=== PATIENT | female | born 1965 | race American Indian/Alaskan Native ===

== ENCOUNTER 2017-01-25 15:34 | Emergency (ER) | payer OTHER ==
[2017-01-25] MEDS ORDERED: Iohexol 240 (50 ml) PO STA (16:36)
[2017-01-25] MEDS ORDERED: Sodium Chloride 0.9% 1,000 ML IV STA (16:36)
[2017-01-25] MEDS ORDERED: Labetalol 25mg/5ml Syringe IV STA (16:39)
[2017-01-25 17:24] LABS: BASO # 0.1 K/uL (0.0-0.2); BASO % 0.5 % (0.0-2.0); EOS % 0.2 % (0.0-4.0); HEMATOCRIT 36.7 % (34.0-47.0); LYMPH # 1.1 K/uL (1.0-4.3); LYMPH % 9.4 % (20.0-40.0); MEAN CELL VOLUME 88.1 fL (81.0-99.0); MEAN PLATELET VOLUME 9.2 fL (7.2-11.7); MONO # 0.7 K/uL (0.0-0.8); MONO % 5.6 % (0.0-10.0); NRBC % 0.1 % (0.0-2.0); PLATELET COUNT 224 K/uL (130-400); RED CELL DISTRIBUTION WIDTH 14.4 % (11.5-14.5)
[2017-01-25 17:26] LABS: WHITE BLOOD COUNT 12.1 K/uL (4.8-10.8)
[2017-01-25] MEDS ORDERED: Labetalol 25mg/5ml Syringe ONE (17:27)
[2017-01-25] MEDS ORDERED: Sodium Chloride 0.9% 1,000 ML ONE (17:28)
[2017-01-25 17:32] LABS: INR 1.2
[2017-01-25 17:33] LABS: POTASSIUM 3.7 mmol/L (3.6-5.2)
[2017-01-25 17:35] LABS: ALB/GLOB RATIO 1.3 (1.0-2.1); BILIRUBIN,TOTAL 0.5 mg/dL (0.2-1.3); TOTAL PROTEIN 7.5 g/dL (6.3-8.3)
[2017-01-25 17:35] LABS: RBC URINE 21 /hpf (0-3); URINE BACTERIA MANY (<OCC); URINE BILIRUBIN NEGATIVE (NEGATIVE); URINE BLOOD 2+ (NEGATIVE); URINE COLOR Yellow (YELLOW); URINE GLUCOSE (UA) 1+ mg/dL (Normal); URINE KETONE NEGATIVE (NEGATIVE); URINE LEUKOCYTE ESTERASE 3+ Leu/uL (Negative); URINE PROTEIN 2+ mg/dL (NEGATIVE); URINE UROBILINOGEN NORMAL mg/dL (0.2-1.0); WBC URINE 346 /hpf (0-5)
[2017-01-25 17:36] LABS: CALCIUM 8.3 mg/dl (8.6-10.4)
[2017-01-25 17:45] LABS: NEUTROPHIL 85 % (50-75); TOTAL CELLS COUNTED 100
--- NOTE | 2017-01-25 17:48 | C.PDOC ---
History Of Present Illness <Renata Brewster - Last Filed: 01/25/17 19:06> <Hector Ortiz - Last Filed: 01/25/17 20:12> 51-year-old female, presents to the emergency department with complaints of abdominal pain. Patient states she has been experiencing right-lower quadrant abdominal pain that started yesterday. Pain is intermittent in nature and non- radiating. Associated with urinary frequency. Patient denies nausea/vomiting, diarrhea, fevers, chills, shortness of breath or any other associated symptoms. No other complaints at this time. (Renata Brewster) History Per: Patient History/Exam Limitations: no limitations <Renata Brewster - Last Filed: 01/25/17 19:06> <Hector Ortiz - Last Filed: 01/25/17 20:12> Time Seen by Provider: 01/25/17 16:28 Chief Complaint (Nursing): Abdominal Pain Past Medical History Reviewed: Historical Data, Nursing Documentation, Vital Signs - Medical History PMH: Bipolar Disorder, Depression, Diabetes, HTN (uncompliant with meds), Paranoia, Schizophrenia Denies: Chronic Kidney Disease Surgical History: Family History: States: Unknown Family Hx, Diabetes, Hypertension - Social History Hx Tobacco Use: Yes Hx Alcohol Use: Yes Hx Substance Use: No - Immunization History Hx Tetanus Toxoid Vaccination: No Hx Influenza Vaccination: No Hx Pneumococcal Vaccination: No <Renata Brewster - Last Filed: 01/25/17 19:06> Vital Signs: Last Vital Signs Temp 100.8 F H 01/25/17 18:00 Pulse 101 H 01/25/17 18:54 Resp 22 01/25/17 18:54 BP 147/83 01/25/17 19:52 Pulse Ox 100 01/25/17 19:09 Review Of Systems Except As Marked, All Systems Reviewed And Found Negative. Constitutional: Negative for: Fever, Chills Cardiovascular: Negative for: Chest Pain, Palpitations Gastrointestinal: Positive for: Abdominal Pain. Negative for: Nausea, Vomiting Genitourinary: Positive for: Frequency Musculoskeletal: Negative for: Back Pain Skin: Negative for: Rash Neurological: Negative for: Weakness, Numbness, Headache, Dizziness <Renata Brewster - Last Filed: 01/25/17 19:06> Physical Exam - Physical Exam Appears: Non-toxic, No Acute Distress Skin: Normal Color, Warm, Dry Head: Atraumatic, Normacephalic Eye(s): bilateral: Normal Inspection Nose: Normal Oral Mucosa: Moist Lips: Normal Appearing Neck: Normal ROM Cardiovascular: Rhythm Regular Respiratory: Normal Breath Sounds Gastrointestinal/Abdominal: Soft, Tenderness (RLQ), Guarding, No Rebound Back: No CVA Tenderness Extremity: Normal ROM Neurological/Psych: Oriented x3, Normal Speech <Renata Brewster - Last Filed: 01/25/17 19:06> ED Course And Treatment - Laboratory Results Result Diagrams: 01/25/17 17:19 01/25/17 17:19 O2 Sat by Pulse Oximetry: 100 Progress Note: Blood work, EKG and CT Ab/Pel ordered and reviewed. Patient treated with Protonix, IVF, Trandate and Zofran <Renata Brewster - Last Filed: 01/25/17 19:06> - Laboratory Results Result Diagrams: 01/25/17 17:19 01/25/17 17:19 O2 Sat by Pulse Oximetry: 100 Pulse Ox Interpretation: Normal Reevaluation Time: 20:12 Reassessment Condition: Improved <Hector Ortiz - Last Filed: 01/25/17 20:12> Disposition - Disposition Disposition Time: 19:08 <Renata Brewster - Last Filed: 01/25/17 19:06> <Hector Ortiz - Last Filed: 01/25/17 20:12> - Disposition Condition: FAIR - Clinical Impression Clinical Impression: Abdominal pain, Hypertension, uncontrolled, Fever - Scribe Statement The provider has reviewed the documentation as recorded by the Scribe <Renata Brewster - Last Filed: 01/25/17 19:06> <Hector Ortiz - Last Filed: 01/25/17 20:12> - Scribe Statement Gallo Patricio All medical record entries made by the Scribe were at my direction and personally dictated by me. I have reviewed the chart and agree that the record accurately reflects my personal performance of the history, physical exam, medical decision making, and the department course for this patient. I have also personally directed, reviewed, and agree with the discharge instructions and disposition. (Renata Brewster) Physician Patient Turnover Patient Signed Over To: Hector Ortiz Handoff Comments: pending CT, BP still elevated, ? pyelo, needs to be admitted <Renata Brewster - Last Filed: 01/25/17 19:06>
[2017-01-25] MEDS ORDERED: Iohexol 240 (50 ml) ONE (18:03)
[2017-01-25] MEDS ORDERED: Enalaprilat 2.5 MG/2 ML IV STA (18:27)
[2017-01-25] MEDS ORDERED: Enalaprilat 2.5 MG/2 ML ONE (18:39)
[2017-01-25] MEDS ORDERED: cefTRIAXone IV 1 gm in Dextros 50 ML IVPB ONE (19:42)
[2017-01-25 19:52] VITALS: BP 147/83
[2017-01-25 20:38] VITALS: PULSE 95; RESP 18; TEMP 100.1; O2SAT 98
--- NOTE | 2017-01-26 09:26 | CT ---
PROCEDURE: CT Abdomen and Pelvis without intravenous contrast HISTORY: Right lower quadrant abdominal pain COMPARISON: None. TECHNIQUE: Axial computed tomographic images were performed through the abdomen and pelvis with intravenous contrast. Subsequently, sagittal and coronal reformatted images were obtained. 50 cc of Visipaque 240 intravenous contrast was administered. Radiation dose: Total exam DLP = 587 mGy-cm. This CT exam was performed using one or more of the following dose reduction techniques: Automated exposure control, adjustment of the mA and/or kV according to patient size, and/or use of iterative reconstruction technique. FINDINGS: LOWER THORAX: 2 millimeter pulmonary nodule in the lateral aspect of the left lower lobe. LIVER: Unremarkable. No gross lesion or ductal dilatation. GALLBLADDER AND BILE DUCTS: Question minimal sludge in the gallbladder. PANCREAS: Unremarkable. No gross lesion or ductal dilatation. SPLEEN: Unremarkable. ADRENALS: Unremarkable. No mass. KIDNEYS AND URETERS: Slight heterogeneity of the right kidney, possibly edematous with moderate stranding and minimal adjacent fluid. Mild right pelvocaliectasis without definite obstructing stone. Stranding associated with the perinephric fat adjacent to the hepatic flexure likely renal in etiology. Suboptimal contrast opacification, limits evaluation for pyelonephritis. VASCULATURE: Unremarkable. No aortic aneurysm. BOWEL: Mild thickening at the level of the hepatic flexure with some adjacent fat stranding may be renal in etiology. APPENDIX: Unremarkable. Normal appendix. PERITONEUM: Unremarkable. No free fluid. No free air. LYMPH NODES: Unremarkable. No enlarged lymph nodes. BLADDER: Unremarkable. REPRODUCTIVE: Multiple benign fibroid lesions in the uterus. BONES: No acute fracture. OTHER FINDINGS: Atherosclerotic calcification in the aorta. Suboptimal contrast opacification. IMPRESSION: Suboptimal contrast opacification. Further evaluation with a dedicated repeat contrast-enhanced CT of the abdomen pelvis may be helpful if clinically indicated. Mild heterogeneity and stranding with adjacent fluid associated with the right kidney. This may represent a recently passed calculi ; however, acute pyelonephritis cannot entirely be excluded. Consider clinical correlation and or laboratory correlation if clinically indicated. Correlation with contrast-enhanced CT of the abdomen and pelvis may be helpful. Thickening at the level of the hepatic flexure of the colon may be reactive. Clinical correlation. Fibroid uterus. Additional findings as above. These findings were preliminarily reported at 8 p.m. on 01/25/[address] Jorge Luis Whiting from [facility].
== END 2017-01-25 20:38 | disposition home or self-care (01) ==
LOC: C.ER 15:34
DX: N39.0 Urinary tract infection, site not specified (principal); B96.20 Unspecified Escherichia coli [E. coli] as the cause of diseases classified elsewhere; R50.81 Fever presenting with conditions classified elsewhere
CPT/HCPCS: 74176; 80053; 81001; 83690; 84703; 85025; 85610; 85730; 87086; 87181; 96361; 96365; 96375; 99285; C9113; J0696; J2405; J7040; Q9966

== ENCOUNTER 2017-05-05 12:28 | Emergency (ER) | payer OTHER ==
[2017-05-05 14:06] LABS: BASO # 0.1 K/uL (0.0-0.2); BASO % 1.4 % (0.0-2.0); EOS # 0.2 K/uL (0.0-0.7); EOS % 2.1 % (0.0-4.0); HEMOGLOBIN 11.4 g/dL (11.0-16.0); LYMPH # 2.5 K/uL (1.0-4.3); LYMPH % 32.6 % (20.0-40.0); MEAN CELL VOLUME 89.8 fL (81.0-99.0); MEAN CORPUSCULAR HEMOGLOBIN 29.4 pg (27.0-31.0); MEAN CORPUSCULAR HGB CONC 32.7 g/dL (33.0-37.0); MEAN PLATELET VOLUME 10.2 fL (7.2-11.7); MONO # 0.5 K/uL (0.0-0.8); MONO % 6.9 % (0.0-10.0); NEUT # 4.3 K/uL (1.8-7.0); NRBC % 0.1 % (0.0-2.0); RBC 3.89 Mil/uL (3.80-5.20); RED CELL DISTRIBUTION WIDTH 14.9 % (11.5-14.5); WHITE BLOOD COUNT 7.5 K/uL (4.8-10.8)
[2017-05-05 14:09] LABS: HCG,QUALITATIVE URINE NEGATIVE (NEGATIVE)
[2017-05-05 14:14] LABS: ALBUMIN 3.7 g/dL (3.5-5.0)
[2017-05-05 14:15] LABS: SQUAMOUS EPITHIAL 17 /hpf (0-5); URINE BACTERIA RARE (<OCC); URINE BILIRUBIN NEGATIVE (NEGATIVE); URINE BLOOD NEGATIVE (NEGATIVE); URINE CLARITY Hazy (Clear); URINE COLOR Yellow (YELLOW); URINE GLUCOSE (UA) NORMAL (Normal); URINE LEUKOCYTE ESTERASE 3+ Leu/uL (Negative); URINE NITRATE NEGATIVE (NEGATIVE); URINE PROTEIN NEGATIVE (NEGATIVE); URINE UROBILINOGEN NORMAL mg/dL (0.2-1.0)
[2017-05-05 14:17] LABS: ALB/GLOB RATIO 1.1 (1.0-2.1)
[2017-05-05 14:18] LABS: CALCIUM 8.1 mg/dl (8.6-10.4)
[2017-05-05] MEDS ORDERED: Sodium Chloride 0.9% 500 ML IV ONE (14:28)
--- NOTE | 2017-05-05 16:59 | CT ---
PROCEDURE: CT abdomen pelvis dated 05/05/2017 HISTORY: Right low back pain, UTI, h/o pyelo, renal insuff. COMPARISON: Comparison made with CT scan abdomen pelvis dated 01/25/2017 TECHNIQUE: Contiguous axial images of the abdomen and pelvis performed without oral or intravenous contrast material. N. Coronal and Sagittal reformats generated. Radiation dose: Total exam DLP = 574.31 mGy-cm. This CT exam was performed using one or more of the following dose reduction techniques: Automated exposure control, adjustment of the mA and/or kV according to patient size, and/or use of iterative reconstruction technique. . FINDINGS: LOWER THORAX: Mild bibasilar atelectasis with suspected concomitant scarring changes left greater than right. No effusion. No evidence of basilar pneumothorax. Heart size is upper limits of normal. . No significant pericardial effusion. LIVER: Liver is borderline/ mildly enlarged measuring approximately 18.4 cm. No obvious hepatic mass or collection. GALLBLADDER AND BILE DUCTS: Gallbladder is incompletely distended which may be due to nonfasting state. No evidence of intraluminal gallbladder calculi. PANCREAS: Visualized portions the pancreas appear grossly unremarkable. SPLEEN: Spleen exhibits normal size and attenuation pattern without mass collection or calcification. ADRENALS: Unremarkable. KIDNEYS AND URETERS: Kidneys at are relatively symmetric in appearance. No evidence of nephrolithiasis. . . There is prominent bilateral extrarenal pelves however the ureters are not significantly dilated. Multiple tiny calcifications are present within pelvis bilaterally surrounding the uterus a, a few of which also are located along the posterolateral margins of the urinary bladder. Possibility of one of the small calcifications within the distal right and left UVJ cannot be completely excluded. Clinical correlation with urinalysis. BLADDER: Urinary bladder is physiologically distended. No evidence of intraluminal urinary bladder calculi. Minimal urinary bladder wall prominence; rule out sequela of cystitis. REPRODUCTIVE: Re- demonstrated is fibroid uterus. Pelvic ultrasound followup could be performed further evaluation if indicated. APPENDIX: Normal-appearing appendix best seen on axial image number [id number]. No periappendiceal inflammatory changes. BOWEL: Evaluation of the bowel is limited due to the lack of oral contrast material. Stomach is incompletely distended which may account for thick-walled appearance. Visualized loops of small bowel exhibit normal contour and caliber. No evidence of acute mechanical small bowel obstruction. Stool and air seen throughout the colon. No evidence of definitive abnormal mural wall thickening of the colon. PERITONEUM: No evidence of free intraperitoneal air. No obvious free or loculated fluid collections. . There does appear to be some faint infiltration changes within the mesentery nonspecific. Rule out imer mesentery. LYMPH NODES: Unremarkable. No enlarged lymph nodes. VASCULATURE: The aorta is somewhat tortuous with calcifications on along the mid abdominal aorta including at the origins of both renal arteries. Rule out renal artery stenosis. BONES: Osseous structures appear intact. Numb very minor degenerative spondylosis of the lower thoracic and lumbar spine. There are no acute compression fractures no retropulsed fragments. OTHER FINDINGS: None. IMPRESSION: No evidence of obstructing nephrolithiasis or hydronephrosis. Multiple tiny calcifications within the pelvis adjacent to the uterus on as well as adjacent to the posterolateral margins of the urinary bladder noted. Possibility of 1 of the small calcifications are within the right and left UVJ cannot be completely excluded. Clinical correlation and a urinalysis evaluation recommended. . The urinary bladder is distended though also exhibits minimal wall thickening. Rule out cystitis. Uterine fibroids. Borderline/mild hepatomegaly. Rule out missed mesentery as above.
[2017-05-05] MEDS ORDERED: cefTRIAXone IV 1 gm in Dextros 50 ML IVPB ONE ×2 (17:05→17:12)
--- NOTE | 2017-05-05 17:09 | C.PDOC ---
History Of Present Illness Pt c/o right lower back pain. Time Seen by Provider: 05/05/17 13:07 Chief Complaint (Nursing): Back Pain History Per: Patient Onset/Duration Of Symptoms: Days (about 2) Current Symptoms Are (Timing): Still Present Quality Of Discomfort: "Pain" Severity: Moderate Exacerbating Factor(s): Movement Additional History Per: Prior Records Past Medical History Reviewed: Historical Data, Nursing Documentation, Vital Signs Vital Signs: Last Vital Signs Temp 98 F 05/05/17 12:29 Pulse 67 05/05/17 16:02 Resp 16 05/05/17 16:02 BP 165/89 H 05/05/17 16:02 Pulse Ox 99 05/05/17 17:12 - Medical History PMH: Bipolar Disorder, Depression, Diabetes, HTN (uncompliant with meds), Paranoia, Chronic Kidney Disease, Schizophrenia Surgical History: Family History: States: Unknown Family Hx, Diabetes, Hypertension - Social History Hx Tobacco Use: Yes Hx Alcohol Use: Yes Hx Substance Use: No - Immunization History Hx Tetanus Toxoid Vaccination: No Hx Influenza Vaccination: No Hx Pneumococcal Vaccination: No Review Of Systems Except As Marked, All Systems Reviewed And Found Negative. Constitutional: Negative for: Fever, Weakness Cardiovascular: Negative for: Chest Pain, Palpitations Respiratory: Negative for: Shortness of Breath Gastrointestinal: Negative for: Vomiting, Diarrhea Genitourinary: Positive for: Dysuria (?) Musculoskeletal: Positive for: Back Pain. Negative for: Neck Pain Skin: Negative for: Rash Neurological: Negative for: Weakness, Numbness, Seizures, Altered Mental Status Physical Exam - Physical Exam Appears: Non-toxic, No Acute Distress Skin: Normal Color, Warm, Dry, No Rash Head: Atraumatic, Normacephalic Eye(s): bilateral: Normal Inspection, PERRL, EOMI Neck: Normal ROM, Supple Cardiovascular: Rhythm Regular Respiratory: Normal Breath Sounds, No Accessory Muscle Use Gastrointestinal/Abdominal: Soft, Tenderness (mild nonspecific), No Guarding, No Rebound Back: No CVA Tenderness, No Vertebral Tenderness Extremity: Normal ROM Neurological/Psych: Oriented x3, Normal Motor, Normal Sensation ED Course And Treatment - Laboratory Results Result Diagrams: 05/05/17 14:01 05/05/17 14:01 Lab Interpretation: Abnormal Interpretation Of Abnormal: UTI. Renal insufficiency. Urine POC: Negative ECG: Interpreted By Me, Viewed By Me ECG Rhythm: Sinus Rhythm, Nonspecific Changes ECG Interpretation: Abnormal Interpretation Of ECG: LVH with strain pattern. Rate From EC O2 Sat by Pulse Oximetry: 99 Pulse Ox Interpretation: Normal - CT Scan/US CT abd/pelv Other Rad Studies (CT/US): Read By Radiologist, Radiology Report Reviewed CT/US Interpretation: IMPRESSION: No evidence of obstructing nephrolithiasis or hydronephrosis. Multiple tiny calcifications within the pelvis adjacent to the uterus on as well as adjacent to the posterolateral margins of the urinary bladder noted. Possibility of 1 of the small calcifications are within the right and left UVJ cannot be completely excluded. Clinical correlation and a urinalysis evaluation recommended. . The urinary bladder is distended though also exhibits minimal wall thickening. Rule out cystitis. Uterine fibroids. Borderline/mild hepatomegaly. Rule out missed mesentery as above. Reassessment Condition: Improved Progress - Interventions Interventions:: Observation, Intravenous fluid - Medications Administered Oral: Antihypertensive Intravenous: Other (Abx) - Data Reviewed Data Reviewed: Lab, Diagnostic imaging, EKG, Old records - Patient Status Patient status: Mostly improved - Critical Care Citical Care: Excluding Proc Time Critical Care Time: 45 minutes - Continuity of Care Discussed patient case with:: Patient, ED Nurse - Patient Plan Patient Plan: Discharge, F/U with PCP Disposition Counseled Patient/Family Regarding: Studies Performed, Diagnosis, Need For Followup, Rx Given, Smoking Cessation - Disposition Referrals: Ky Ashley MD [Medical Doctor] - Disposition: HOME/ ROUTINE Disposition Time: 17:40 Condition: IMPROVED Additional Instructions: Follow up with your doctor this week for further evaluation and treatment. Return to the ER if you develop fever, vomiting, abdominal pain, trouble urinating, weakness, numbness, worsening of symptoms or if you have any other concerns. Prescriptions: amLODIPine [Norvasc] 5 mg PO DAILY #30 tab Ciprofloxacin [Cipro] 1 tab PO BID #14 tab cloNIDine [Catapres] 0.2 mg PO BID #60 tab Instructions: Urinary Tract Infection in Women (ED), Hypertension (ED) - Clinical Impression Clinical Impression: Uncontrolled hypertension, UTI (urinary tract infection)
[2017-05-05 18:08] VITALS: BP 165/98; PULSE 75; RESP 18; TEMP 98.5; O2SAT 98
--- NOTE | 2017-05-06 11:08 | CARD ---
APPROVED REPORT EKG Measurement Heart [id number] <Conclusion> Sinus rhythm with premature supraventricular complexes Left ventricular hypertrophy with repolarization abnormality Possible Inferior infarct, age undetermined Abnormal ECG
== END 2017-05-05 18:00 | disposition home or self-care (01) ==
LOC: C.ER 12:28
DX: N39.0 Urinary tract infection, site not specified (principal); I12.9 Hypertensive chronic kidney disease with stage 1 through stage 4 chronic kidney disease, or unspecified chronic kidney disease
CPT/HCPCS: 74176; 80053; 81001; 82948; 83690; 84703; 85025; 87086; 93005; 96365; 99285; J0696; J7040

== ENCOUNTER 2017-10-06 12:15 | Emergency (ER) | payer OTHER ==
--- NOTE | 2017-10-06 13:14 | C.PDOC ---
History Of Present Illness 52 year old female with Hx of HTN presents to the ED c/o congestion and generalized body aches for the past 2 days. Patient also reports pain to her left big toe. Patient reports her HTN medication ended today, she denies fever, nausea, vomit, abdominal pain, weakness, numbness, headache. Time Seen by Provider: 10/06/17 12:55 Chief Complaint (Nursing): Cough, Cold, Congestion History Per: Patient History/Exam Limitations: no limitations Onset/Duration Of Symptoms: Days Current Symptoms Are (Timing): Still Present Associated Symptoms: Sore Throat, Cough, Myalgias. denies: Sputum Ear Symptoms: Bilateral: None Severity: None Recent travel outside of the [place]: No Additional History Per: Patient Past Medical History Reviewed: Historical Data, Nursing Documentation, Vital Signs Vital Signs: Last Vital Signs Temp 97.8 F 10/06/17 12:29 Pulse 84 10/06/17 12:27 Resp 19 10/06/17 12:27 BP 241/145 H 10/06/17 12:27 Pulse Ox 98 10/06/17 13:33 - Medical History PMH: Bipolar Disorder, Depression, Diabetes, HTN (uncompliant with meds), Paranoia, Chronic Kidney Disease, Schizophrenia Surgical History: Family History: States: Unknown Family Hx, Diabetes, Hypertension - Social History Hx Tobacco Use: Yes Hx Alcohol Use: Yes Hx Substance Use: No - Immunization History Hx Tetanus Toxoid Vaccination: No Hx Influenza Vaccination: No Hx Pneumococcal Vaccination: No Review Of Systems Constitutional: Negative for: Fever, Chills Eyes: Negative for: Vision Change ENT: Positive for: Throat Pain. Negative for: Ear Pain Cardiovascular: Negative for: Chest Pain, Palpitations Respiratory: Positive for: Cough. Negative for: Shortness of Breath Gastrointestinal: Negative for: Nausea, Vomiting, Abdominal Pain Genitourinary: Negative for: Dysuria Musculoskeletal: Negative for: Neck Pain, Back Pain Skin: Negative for: Rash Neurological: Negative for: Weakness, Numbness Physical Exam - Physical Exam Appears: Non-toxic, No Acute Distress Skin: Normal Color, Warm, Dry Head: Atraumatic, Normacephalic Nose: No Discharge Oral Mucosa: Moist Throat: Erythema, Other (swelling posterior pharynx ) Neck: Normal ROM, Supple Chest: Symmetrical Cardiovascular: Rhythm Regular, No Murmur Respiratory: Normal Breath Sounds, No Rales, No Rhonchi, No Wheezing Gastrointestinal/Abdominal: Soft, No Tenderness, No Distention, No Rebound Extremity: Normal ROM, Tenderness (Left big toe), No Pedal Edema, No Calf Tenderness, No Swelling Neurological/Psych: Oriented x3, Normal Speech, Normal Cognition Gait: Steady ED Course And Treatment O2 Sat by Pulse Oximetry: 98 (On RA) Pulse Ox Interpretation: Normal Medical Decision Making Medical Decision Making: Impression : congestion Plan: * Catapres 0.3 mg PO Disposition - Disposition Disposition: HOME/ ROUTINE Disposition Time: 13:45 Condition: STABLE Prescriptions: cloNIDine [Catapres] 0.3 mg PO BID #30 tab Ibuprofen [Motrin Tab] 600 mg PO TID PRN #15 tab PRN Reason: Pain, Moderate (4-7) Promethazine DM [Phenergan DM Syrup] 10 ml PO TID PRN #120 ml PRN Reason: Cough Instructions: Upper Respiratory Infection (ED) Forms: [facility] (Cameroonian) - Clinical Impression Clinical Impression: Hypertension, URI (upper respiratory infection), Paronychia - Scribe Statement The provider has reviewed the documentation as recorded by the Scribe Pepe Rebollar All medical record entries made by the Scribe were at my direction and personally dictated by me. I have reviewed the chart and agree that the record accurately reflects my personal performance of the history, physical exam, medical decision making, and the department course for this patient. I have also personally directed, reviewed, and agree with the discharge instructions and disposition.
[2017-10-06 14:12] VITALS: RESP 18; O2SAT 99
[2017-10-06 15:04] VITALS: BP 175/98; PULSE 64; TEMP 98.2
== END 2017-10-06 16:00 | disposition home or self-care (01) ==
LOC: C.ER 12:15
DX: J06.9 Acute upper respiratory infection, unspecified (principal); L03.032 Cellulitis of left toe; I12.9 Hypertensive chronic kidney disease with stage 1 through stage 4 chronic kidney disease, or unspecified chronic kidney disease; N18.9 Chronic kidney disease, unspecified; Z87.891 Personal history of nicotine dependence

== ENCOUNTER 2017-10-09 12:59 | Emergency (ER) | payer OTHER ==
[2017-10-09 13:17] VITALS: PULSE 72; RESP 18; TEMP 97.6; O2SAT 99
--- NOTE | 2017-10-09 13:43 | C.PDOC ---
History Of Present Illness 52 year old female with PMH of HTN presents to ED with complaints of cough for the past 4 days. She states she finished the cough medicine given to her by doctor the other day. She still has cough and congestion, non-productive. She states she needs refill of her HTN medicine Norvasc. She states she took the catapres once a day and has not taken it yet today. Patient states she has been working a lot and is stressed out. Time Seen by Provider: 10/09/17 13:30 Chief Complaint (Nursing): Cough, Cold, Congestion History Per: Patient History/Exam Limitations: no limitations Onset/Duration Of Symptoms: Days Current Symptoms Are (Timing): Still Present Sick Contacts (Context): Individual(s) At Work Associated Symptoms: Cough, Myalgias, Nasal Congestion Past Medical History Reviewed: Historical Data, Nursing Documentation, Vital Signs Vital Signs: Last Vital Signs Temp 97.6 F 10/09/17 13:13 Pulse 72 10/09/17 13:13 Resp 18 10/09/17 13:13 BP 178/107 H 10/09/17 14:20 Pulse Ox 99 10/09/17 14:23 - Medical History PMH: Bipolar Disorder, Depression, Diabetes, HTN (uncompliant with meds), Paranoia, Chronic Kidney Disease, Schizophrenia Surgical History: Family History: States: Unknown Family Hx, Diabetes, Hypertension - Social History Hx Tobacco Use: Yes Hx Alcohol Use: Yes Hx Substance Use: No - Immunization History Hx Tetanus Toxoid Vaccination: No Hx Influenza Vaccination: No Hx Pneumococcal Vaccination: No Review Of Systems Constitutional: Positive for: Malaise. Negative for: Fever, Weakness Eyes: Negative for: Vision Change ENT: Positive for: Nose Congestion Respiratory: Positive for: Cough. Negative for: Sputum, Wheezing Gastrointestinal: Negative for: Vomiting, Abdominal Pain, Diarrhea Genitourinary: Negative for: Dysuria Skin: Negative for: Rash Neurological: Negative for: Headache Physical Exam - Physical Exam Appears: Non-toxic, No Acute Distress Skin: Warm, Dry, No Rash Head: Atraumatic, Normacephalic Eye(s): bilateral: Normal Inspection, EOMI Nose: Normal, No Flaring Oral Mucosa: Moist Neck: Normal ROM Chest: Symmetrical Cardiovascular: Rhythm Regular, No Murmur Respiratory: Normal Breath Sounds (clear to auscultation), No Accessory Muscle Use, No Rhonchi, No Wheezing Extremity: Bilateral: Atraumatic, Normal Color And Temperature, Normal ROM Neurological/Psych: Oriented x3, Normal Speech Gait: Steady ED Course And Treatment O2 Sat by Pulse Oximetry: 99 Medical Decision Making Medical Decision Making: Patient with history of uncontrolled BP comes in for medicine refill and asking for more cough medicine, she has a cold. Patient was just seen in ED 3 days ago for similar symptoms. Patient smells of cigarette smoke and has dry cough. O2 saturation is adequate. Will give Norvasc and give Rx. Patient instructed to follow up with PCP or clinic. Disposition Counseled Patient/Family Regarding: Diagnosis, Need For Followup, Rx Given - Disposition Referrals: [facility] [Outside] [facility] [Outside] [email or web address] [Outside] Disposition: HOME/ ROUTINE Disposition Time: 14:00 Condition: STABLE Additional Instructions: Follow up with the clinic in 2-5 days for further evaluation. Take medications as prescribed. Return to the emergency department at any time if symptoms persist or worsen. You may call [employer] service for any assistance . Prescriptions: amLODIPine [Norvasc] 2.5 mg PO DAILY #30 tab Prednisone 50 mg PO DAILY #4 tablet Promethazine DM [Phenergan DM Syrup] 10 ml PO Q8 PRN #300 ml PRN Reason: Cough Instructions: Upper Respiratory Infection (ED) Forms: [facility] (Belarusian) - POA Present On Arrival: None - Clinical Impression Clinical Impression: Upper respiratory infection, Hypertension
[2017-10-09 14:21] VITALS: BP 178/107
== END 2017-10-09 14:43 | disposition home or self-care (01) ==
LOC: C.ER 12:59
DX: J06.9 Acute upper respiratory infection, unspecified (principal); I10 Essential (primary) hypertension; Z72.0 Tobacco use

== ENCOUNTER 2017-12-21 02:13 | Emergency (ER) | payer OTHER ==
[2017-12-21] MEDS ORDERED: Naproxen 550 mg Tab PO STA (03:01)
[2017-12-21] MEDS ORDERED: Naproxen 550 mg Tab PO ONE (03:28)
--- NOTE | 2017-12-21 03:56 | C.PDOC ---
History Of Present Illness 52 year old female presents to the ER with a complaint of pain to the left buttock that radiates to the left thigh for the past 3 days. Patient states she has been applying bengay to the area with no relief; she has not taken any medication at home for the pain. Patient has a Hx of chronic HTN on clonidine, she reports she did not take her dose yesterday. Denies trauma, weakness, numbness, dysuria, hematuria, or incontinence. Time Seen by Provider: 12/21/17 02:46 Chief Complaint (Nursing): Hip Pain History Per: Patient History/Exam Limitations: no limitations Onset/Duration Of Symptoms: Days Current Symptoms Are (Timing): Still Present Recent travel outside of the [place]: No Past Medical History Reviewed: Historical Data, Nursing Documentation, Vital Signs Vital Signs: Last Vital Signs Temp 98.4 F 12/21/17 05:32 Pulse 66 12/21/17 05:32 Resp 16 12/21/17 05:32 BP 170/93 H 12/21/17 05:32 Pulse Ox 99 12/21/17 05:32 - Medical History PMH: Bipolar Disorder, Depression, Diabetes, HTN (uncompliant with meds), Paranoia, Chronic Kidney Disease, Schizophrenia Surgical History: Family History: States: Diabetes, Hypertension - Social History Hx Tobacco Use: Yes Hx Alcohol Use: Yes Hx Substance Use: No - Immunization History Hx Tetanus Toxoid Vaccination: No Hx Influenza Vaccination: No Hx Pneumococcal Vaccination: No Review Of Systems Genitourinary: Negative for: Dysuria, Incontinence, Hematuria Musculoskeletal: Positive for: Leg Pain Neurological: Negative for: Weakness, Numbness Physical Exam - Physical Exam Appears: Non-toxic, No Acute Distress Skin: Normal Color, Warm, Dry Head: Atraumatic, Normacephalic Eye(s): bilateral: Normal Inspection Back: No Vertebral Tenderness, No Paraspinal Tenderness, Straight Leg Raising ( Positive at 40 degrees) Extremity: Tenderness (Left gluteal area), Other (ROM of left lower extremity with pain to buttock) Neurological/Psych: Oriented x3, Normal Speech, Normal Motor, Normal Sensation Gait: Steady ED Course And Treatment O2 Sat by Pulse Oximetry: 98 (Room air) Pulse Ox Interpretation: Normal Progress Note: Naproxen administered for pain with relief. Patient's BP found to be elevated but otherwise she has no associated SOB, chest pain, headache, or visual complaints; will give dose of clonidine here in the ER. Pt with improved BP after meds. Pt 's pain improved, is ambulatory in the ER with no pain or discomfort, will discharge home with instructions to follow up with PMD or return if symptoms worsen. Disposition - Disposition Disposition: HOME/ ROUTINE Disposition Time: 05:59 Condition: STABLE Additional Instructions: Continue BP meds Follow up with PMD or in cllinic Naproxen for pain Return if worse Forms: [employer] (French) - PA / RADIOLOGY SPECIALIST / Resident Statement MD/DO has reviewed & agrees with the documentation as recorded. - Scribe Statement The provider has reviewed the documentation as recorded by the Scribmodesta Humphrey All medical record entries made by the Graciela were at my direction and personally dictated by me. I have reviewed the chart and agree that the record accurately reflects my personal performance of the history, physical exam, medical decision making, and the department course for this patient. I have also personally directed, reviewed, and agree with the discharge instructions and disposition.
[2017-12-21 04:46] VITALS: RESP 16
[2017-12-21 05:33] VITALS: BP 170/93; PULSE 66; TEMP 98.4
[2017-12-21 06:02] VITALS: O2SAT 98
== END 2017-12-21 06:11 | disposition home or self-care (01) ==
LOC: C.ER 02:13
DX: M54.30 Sciatica, unspecified side (principal); Z72.0 Tobacco use; I12.9 Hypertensive chronic kidney disease with stage 1 through stage 4 chronic kidney disease, or unspecified chronic kidney disease; N18.9 Chronic kidney disease, unspecified

== ENCOUNTER 2018-01-17 06:01 | Emergency (ER) | payer OTHER ==
[2018-01-17] MEDS ORDERED: Albuterol 0.083% Inhal Sol (2.5 mg/3 mL) UD ONE (06:25)
--- NOTE | 2018-01-17 06:29 | C.PDOC ---
History Of Present Illness <Mirna Ricketts - Last Filed: 01/18/18 05:54> <Janett Ferrera - Last Filed: 01/18/18 09:12> 52 year old female smoker with a Hx of HTN and is "borderline diabetic", presents to the ER with a complaint of feeling SOB, pleuritic chest pain, with nonproductive cough for the past hour. Patient denies any Hx of asthma, COPD, prior episodes of pneumonia, or cardiac Hx. Patient is a poor historian. ( Mirna Ricketts) History Per: Patient History/Exam Limitations: no limitations Onset/Duration Of Symptoms: Hrs Current Symptoms Are (Timing): Still Present Associated Symptoms: Chest Pain (Pleuritic), Other (nonproductive cough, SOB). denies: Fever, Chills Recent travel outside of the [place]: No <Mirna Ricketts - Last Filed: 01/18/18 05:54> <Janett Ferrera - Last Filed: 01/18/18 09:12> Chief Complaint (Nursing): Shortness Of Breath Past Medical History Reviewed: Historical Data, Nursing Documentation, Vital Signs - Medical History PMH: Bipolar Disorder, Depression, Diabetes, HTN (uncompliant with meds), Paranoia, Schizophrenia Surgical History: Family History: States: Diabetes, Hypertension - Social History Hx Tobacco Use: Yes Hx Alcohol Use: Yes (BEER) Hx Substance Use: No - Immunization History Hx Tetanus Toxoid Vaccination: No Hx Influenza Vaccination: No Hx Pneumococcal Vaccination: No <Mirna Ricketts - Last Filed: 01/18/18 05:54> Vital Signs: Last Vital Signs Temp 97.7 F 01/17/18 09:02 Pulse 68 01/17/18 10:32 Resp 18 01/17/18 10:32 BP 121/78 01/17/18 10:32 Pulse Ox 97 01/17/18 10:32 Review Of Systems Constitutional: Negative for: Fever, Chills Cardiovascular: Negative for: Palpitations Respiratory: Positive for: Cough, Shortness of Breath, Pleuritic Pain Gastrointestinal: Negative for: Nausea, Vomiting Musculoskeletal: Negative for: Neck Pain, Shoulder Pain <Mirna Ricketts - Last Filed: 01/18/18 05:54> Physical Exam - Physical Exam Appears: Non-toxic Skin: Normal Color, Warm, Dry Head: Atraumatic, Normacephalic Eye(s): bilateral: Normal Inspection Ear(s): Bilateral: Normal Nose: Normal Oral Mucosa: Moist Throat: Normal, No Erythema, No Exudate Neck: Normal, Supple Chest: Symmetrical, No Tenderness Cardiovascular: Rhythm Regular (Resting tachycardia at 108), No Murmur Respiratory: Decreased Breath Sounds (Bilaterally), No Accessory Muscle Use, No Rales, No Rhonchi, No Wheezing Gastrointestinal/Abdominal: Soft, No Tenderness Extremity: No Pedal Edema Neurological/Psych: Oriented x3, Normal Speech, Normal Cognition, Normal Cranial Nerves, Normal Motor, Normal Sensation <Mirna Ricketts - Last Filed: 01/18/18 05:54> ED Course And Treatment ECG: Interpreted By Me ECG Rhythm: Sinus Rhythm ECG Interpretation: Abnormal Interpretation Of ECG: sinus rhythm,diffuse t wave assymmetrical inversions,LVH <Mirna Ricketts - Last Filed: 01/18/18 05:54> - Laboratory Results Result Diagrams: 01/17/18 06:55 01/17/18 06:55 <Janett Ferrera - Last Filed: 01/18/18 09:12> Medical Decision Making <Mirna Ricketts - Last Filed: 01/18/18 05:54> <Janett Ferrera - Last Filed: 01/18/18 09:12> Medical Decision Making: Impression is bronchitis vs bronchospasm vs pneumonia. Will give albuterol treatments, send labs, and order CXR. (Mirna Ricketts) Disposition <Mirna Ricketts - Last Filed: 01/18/18 05:54> Counseled Patient/Family Regarding: Studies Performed, Diagnosis, Need For Followup, Rx Given - Disposition Disposition Time: 10:20 <Janett Ferrera - Last Filed: 01/18/18 09:12> - Disposition Referrals: Ritchie Vuong MD [Staff Provider] - Disposition: HOME/ ROUTINE Condition: STABLE Additional Instructions: FOLLOW UP WITH YOUR DOCTOR IN 1-2 DAYS, BRING COPIES OF ALL STUDIES TO HIM USE MEDICATIONS DIRECTED RETURN TO ER IF SYMPTOMS WORSEN Prescriptions: Albuterol HFA [Ventolin HFA 90 mcg/actuation (8 g)] 0.09 mg IH Q4 PRN #1 puff PRN Reason: Wheezing Ibuprofen [Motrin Tab] 800 mg PO Q6 PRN #60 tab PRN Reason: PAIN Oseltamivir Phosphate [Tamiflu] 75 mg PO BID #10 capsule predniSONE [predniSONE Tab] 40 mg PO DAILY #8 tab Instructions: Risk Factors for COPD Forms: [facility] (Kiswahili) - Clinical Impression Clinical Impression: Acute renal insufficiency, Wheezing, COPD (chronic obstructive pulmonary disease), Influenza - Scribe Statement The provider has reviewed the documentation as recorded by the Scribe <Mirna Ricketts - Last Filed: 01/18/18 05:54> <Janett Ferrera - Last Filed: 01/18/18 09:12> - Scribe Statement Akhil Humphrey All medical record entries made by the Scribe were at my direction and personally dictated by me. I have reviewed the chart and agree that the record accurately reflects my personal performance of the history, physical exam, medical decision making, and the department course for this patient. I have also personally directed, reviewed, and agree with the discharge instructions and disposition. (Mirna Ricketts) Physician Patient Turnover Patient Signed Over To: Janett Ferrera <Mirna Ricketts - Last Filed: 01/18/18 05:54> Addendum <Mirna Ricketts - Last Filed: 01/18/18 05:54> <Janett Ferrera - Last Filed: 01/18/18 09:12> Addendum: 01/17/18 07:46 Patient sleeping on stretcher, easily arousable, speaking in full sentences, states she feels a little better than when she came in . On exam, she has 3/6 holosystolic murmur, RRR, mild rales at bases B/L without wheezing/rhonchi or accessory muscle use, no pitting edema LEs. D-dimer elevated, and influenza A + . Patient going for VQ scan (unable to get CT Angio due to elevated Bun/Cr). 01/17/18 09:54 Accession No. : [id number] Patient Name / ID : VIVIAN ONTIVEROS / [id number] Exam Date : 01/17/2018 07:42:07 ( Approved ) Study Comment : Sex / Age : F / 52Y Creator : Yamil Holcomb MD Dictator : Yamil Holcomb MD Reel Tender : Tick Inspector : Yamil Holcomb MD Approver2 : Report Date : 01/17/2018 09:46:18 My Comment : COMPARISON: Chest x-ray 01/17/2018 TECHNIQUE: 11.8 mCi technetium 99-m Xe-133 Gas. 3.8 mCI technetium 99-m MAA administered intravenously. FINDINGS: VENTILATION COMPONENT: Normal. PERFUSION COMPONENT: Normal. IMPRESSION: Lowprobability ventilation perfusion scan for pulmonary embolism. 01/17/18 10:14 Patient reassessed, is resting comfortably and states she feels better. On exam , she has good air entry B/L without accessory muscle use or wheezing. Patient states she would like to be discharged home. Explained to patient that her Bun/ Cr and BNP are elevated, and that I suspect she is developing COPD due to her smoking. Rxs for prednisone, albuterol and Tamiflu given. Patient given copies of all studies and instructed to follow up with her PMD in 1-2 days. She understands she should return to ED if symptoms worsen. (Janett Ferrera)
[2018-01-17 06:59] LABS: BASO # 0.1 K/uL (0.0-0.2); BASO % 1.2 % (0.0-2.0); EOS # 0.1 K/uL (0.0-0.7); EOS % 1.5 % (0.0-4.0); HEMOGLOBIN 12.6 g/dL (11.0-16.0); LYMPH # 2.4 K/uL (1.0-4.3); LYMPH % 30.5 % (20.0-40.0); MEAN CELL VOLUME 91.2 fL (81.0-99.0); MEAN CORPUSCULAR HEMOGLOBIN 30.8 pg (27.0-31.0); MEAN CORPUSCULAR HGB CONC 33.8 g/dL (33.0-37.0); MEAN PLATELET VOLUME 9.6 fL (7.2-11.7); MONO # 0.4 K/uL (0.0-0.8); MONO % 4.9 % (0.0-10.0); NEUT # 4.8 K/uL (1.8-7.0); NEUT % 61.9 % (50.0-75.0); NRBC % 0.1 % (0.0-2.0); RBC 4.11 Mil/uL (3.80-5.20); RED CELL DISTRIBUTION WIDTH 14.7 % (11.5-14.5); WHITE BLOOD COUNT 7.8 K/uL (4.8-10.8)
[2018-01-17] MEDS: Albuterol 0.083% Inhal Sol (2.5 mg/3 mL) UD INH STA (07:10)
[2018-01-17 07:16] LABS: ALB/GLOB RATIO 1.2 (1.0-2.1); ALBUMIN 4.1 g/dL (3.5-5.0); CALCIUM 8.4 mg/dl (8.6-10.4)
[2018-01-17 07:27] LABS: TROPONIN I 0.016 ng/mL (0.00-0.120)
--- NOTE | 2018-01-17 08:34 | RAD ---
PROCEDURE: CHEST RADIOGRAPH, 1 VIEW HISTORY: Shortness of breath COMPARISON: 12/05/2015. FINDINGS: LUNGS: The lungs are well inflated. There is bibasilar atelectasis. No focal consolidation. PLEURA: No pneumothorax or pleural fluid seen. CARDIOVASCULAR: Normal. OSSEOUS STRUCTURES: No significant abnormalities. VISUALIZED UPPER ABDOMEN: Normal. OTHER FINDINGS: None. IMPRESSION: No active pulmonary disease.
[2018-01-17 09:02] VITALS: RESP 18; TEMP 97.7
--- NOTE | 2018-01-17 09:47 | NM ---
COMPARISON: Chest x-ray 01/17/2018 TECHNIQUE: 11.8 mCi technetium 99-m Xe-133 Gas. 3.8 mCI technetium 99-m MAA administered intravenously. FINDINGS: VENTILATION COMPONENT: Normal. PERFUSION COMPONENT: Normal. IMPRESSION: Lowprobability ventilation perfusion scan for pulmonary embolism.
[2018-01-17 10:34] VITALS: BP 121/78; PULSE 68; O2SAT 97
== END 2018-01-17 10:35 | disposition home or self-care (01) ==
LOC: C.ER 06:01
DX: J44.9 Chronic obstructive pulmonary disease, unspecified (principal); J11.1 Influenza due to unidentified influenza virus with other respiratory manifestations; N28.9 Disorder of kidney and ureter, unspecified; R06.2 Wheezing; Z72.0 Tobacco use

== ENCOUNTER 2018-08-18 03:11 | Emergency (ER) | payer OTHER ==
[2018-08-18 03:29] VITALS: TEMP 98.2
--- NOTE | 2018-08-18 04:10 | C.PDOC ---
History Of Present Illness 53 y/o female, with PMHx of psychiatric disorder and HTN, presents to the ED complaining of vaginal burning and irritation for two days. 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 She reports taking cloNIDine but she ran out of her o ther blood pressure medications that she does not recall the name of. The patient denies any SOB, headache, nausea, vomiting, diarrhea or fever. Time Seen by Provider: 08/18/18 03:35 Chief Complaint (Nursing): Female Genitourinary History Per: Patient History/Exam Limitations: no limitations Onset/Duration Of Symptoms: Days Current Symptoms Are (Timing): Still Present Recent travel outside of the [place]: No Past Medical History Reviewed: Historical Data, Nursing Documentation, Vital Signs Vital Signs: Last Vital Signs Temp 98.2 F 08/18/18 03:25 Pulse 86 08/18/18 03:29 Resp 18 08/18/18 03:29 BP 235/138 H 08/18/18 03:29 Pulse Ox 96 08/18/18 03:29 - Medical History PMH: Bipolar Disorder, Depression, Diabetes, HTN (uncompliant with meds), Paranoia, Schizophrenia Denies: Chronic Kidney Disease Surgical History: Family History: States: Unknown Family Hx, Diabetes, Hypertension - Social History Hx Tobacco Use: Yes Hx Alcohol Use: Yes (BEER) Hx Substance Use: No - Immunization History Hx Tetanus Toxoid Vaccination: No Hx Influenza Vaccination: No Hx Pneumococcal Vaccination: No Review Of Systems Respiratory: Negative for: Shortness of Breath Gastrointestinal: Negative for: Nausea, Vomiting, Diarrhea Genitourinary: Positive for: Other (vaginal burning/ irritation) Neurological: Negative for: Headache Physical Exam - Physical Exam Appears: Non-toxic, No Acute Distress Skin: Warm, Dry Head: Atraumatic, Normacephalic Eye(s): bilateral: PERRL, EOMI Neck: Supple Chest: No Tenderness Cardiovascular: Rhythm Regular, No Murmur Respiratory: No Rales, No Rhonchi, No Wheezing, Other (CTA b/l) Gastrointestinal/Abdominal: Bowel Sounds, Soft, No Tenderness, No Distention Back: No CVA Tenderness Pelvic: Normal External Exam, Normal Bimanual Exam, Vaginal Bleeding (scant), Vaginal Discharge (thick white clumpy discharge), No Cervical Motion Tenderness, No Cervix Open, No Adnexal Tenderness, Other (chaperoned by ROSE MARIE Meyer) Extremity: No Calf Tenderness, No Swelling Neurological/Psych: Oriented x3, Normal Speech, Normal Cognition ED Course And Treatment - Laboratory Results Result Diagrams: 08/18/18 04:14 08/18/18 04:14 O2 Sat by Pulse Oximetry: 96 (RA) Pulse Ox Interpretation: Normal Progress Note: Ordered EKG, basic labs to check for organ damage, UA and UDS. Medical Decision Making Medical Decision Making: pt with uncontrolled blood pressure; non compliant with medication; also cocaine positive on utox; pt denies use, sts was around others using. lab results discussed with patient; worsening renal function, and relation to untreated bp, with future concern for need for dialysis. 0615 pt with bp 208/118 at this time after being given norvasc and clonidine. pt without headache, cp, sob, dizziness. pt asymptomatic from elevated bp. will give pt rx for norvasc, has been strongly advised to take norvasc and to stop using cocaine and the need for blood pressure check in 2-3 days. pt expresses understanding. Disposition Counseled Patient/Family Regarding: Studies Performed, Diagnosis, Need For Followup, Rx Given - Disposition Referrals: [facility] [Outside] Disposition: HOME/ ROUTINE Disposition Time: 06:19 Condition: GOOD Additional Instructions: TAKE YOUR BLOOD PRESSURE MEDICINE STOP USING COCAINE GO TO YOUR DOCTOR IN 2-3 DAYS FOR A BLOOD PRESSURE CHECK USE ONE APPLICATOR OF MONISTAT CREAM IN VAGINA AT BEDTIME RECOMMEND NO SEX UNTIL YEAST INFECTION CLEARS UP RETURN TO ER FOR ANY CHEST PAIN, HEADACHE, DIZZINESS. SHORTNESS OF BREATH OR OTHER CONCERNS. ] Prescriptions: amLODIPine [Norvasc] 10 mg PO DAILY #30 tab Miconazole 2% Vaginal [Monistat 7 Vaginal Cream] 1 ea VG HS #1 tube Instructions: High Blood Pressure (DC), Malignant Hypertension (DC) Forms: [employer] (Nepalese) Print Language: SAMOAN - Clinical Impression Clinical Impression: Uncontrolled hypertension, Alpa vaginitis - PA / SOW MANAGER / Resident Statement MD/DO has reviewed & agrees with the documentation as recorded. - Scribe Statement The provider has reviewed the documentation as recorded by the Scribmodesta Yadav All medical record entries made by the Scribe were at my direction and personally dictated by me. I have reviewed the chart and agree that the record accurately reflects my personal performance of the history, physical exam, medical decision making, and the department course for this patient. I have also personally directed, reviewed, and agree with the discharge instructions and disposition.
[2018-08-18 04:21] LABS: BASO # 0.1 K/uL (0.0-0.2); BASO % 1.2 % (0.0-2.0); EOS # 0.2 K/uL (0.0-0.7); EOS % 2.2 % (0.0-4.0); HEMOGLOBIN 11.3 g/dL (11.0-16.0); LYMPH # 2.5 K/uL (1.0-4.3); LYMPH % 32.2 % (20.0-40.0); MEAN CELL VOLUME 90.9 fL (81.0-99.0); MEAN CORPUSCULAR HEMOGLOBIN 30.2 pg (27.0-31.0); MEAN CORPUSCULAR HGB CONC 33.2 g/dL (33.0-37.0); MEAN PLATELET VOLUME 9.3 fL (7.2-11.7); MONO # 0.7 K/uL (0.0-0.8); MONO % 9.1 % (0.0-10.0); NEUT # 4.3 K/uL (1.8-7.0); NEUT % 55.3 % (50.0-75.0); NRBC % 0.1 % (0.0-2.0); RBC 3.73 Mil/uL (3.80-5.20); WHITE BLOOD COUNT 7.7 K/uL (4.8-10.8)
[2018-08-18 04:28] LABS: SQUAMOUS EPITHIAL 1 /hpf (0-5); URINE BILIRUBIN NEGATIVE (NEGATIVE); URINE BLOOD 2+ (NEGATIVE); URINE CLARITY Clear (Clear); URINE COLOR Straw (YELLOW); URINE GLUCOSE (UA) NORMAL (Normal); URINE HYALINE CAST 0-2 /lpf (0-2); URINE LEUKOCYTE ESTERASE 1+ Leu/uL (Negative); URINE PROTEIN 1+ mg/dL (NEGATIVE); URINE UROBILINOGEN NORMAL mg/dL (0.2-1.0)
[2018-08-18 04:29] LABS: ALB/GLOB RATIO 1.4 (1.0-2.1); ALBUMIN 4.2 g/dL (3.5-5.0); ALT/SGPT 30 U/L (9-52); AST/SGOT 43 U/L (14-36); BLOOD UREA NITROGEN 33 mg/dL (7-17); CALCIUM 8.9 mg/dl (8.6-10.4); GFR NON-AFRICAN AMERICAN 23
[2018-08-18 04:35] LABS: BARBITURATES, UR NEGATIVE (NEGATIVE); BENZODIAZEPINES, UR NEGATIVE (NEGATIVE); OPIATES, UR NEGATIVE (NEGATIVE); PHENCYCLIDINE, UR NEGATIVE (NEGATIVE)
[2018-08-18 06:38] VITALS: BP 195/114; PULSE 72; RESP 16; O2SAT 98
--- NOTE | 2018-08-21 17:25 | CARD ---
APPROVED REPORT Date of service: 08/18/2018 EKG Measurement Heart [id number] <Conclusion> Sinus rhythm with occasional premature ventricular complexes Possible Left atrial enlargement Left ventricular hypertrophy with repolarization abnormality Inferior infarct, age undetermined Abnormal ECG
== END 2018-08-18 06:42 | disposition home or self-care (01) ==
LOC: C.ER 03:11
DX: B37.3 Candidiasis of vulva and vagina (principal); I10 Essential (primary) hypertension; E11.9 Type 2 diabetes mellitus without complications; F20.9 Schizophrenia, unspecified; Z72.0 Tobacco use

== ENCOUNTER 2018-08-31 12:47 | Emergency (ER) | payer OTHER ==
--- NOTE | 2018-08-31 14:01 | C.PDOC ---
History Of Present Illness 53 y/o female with history of HTN presents to ED with c/o right shoulder pain since this morning. At ED patient is hypertensive and patient reports non compliant with medications. Patient also c/o sore throat and cough, denies chest pain, sob, recent travel, nausea, vomiting, diarrhea, fever, chills or any other complaints at this time. Time Seen by Provider: 08/31/18 13:43 Chief Complaint (Nursing): High Blood Pressure History Per: Patient History/Exam Limitations: no limitations Onset/Duration Of Symptoms: Hrs Current Symptoms Are (Timing): Still Present Past Medical History Reviewed: Historical Data, Nursing Documentation, Vital Signs Vital Signs: Last Vital Signs Temp 97.7 F 08/31/18 13:23 Pulse 63 08/31/18 13:23 Resp 18 08/31/18 13:23 BP 219/131 H 08/31/18 13:23 Pulse Ox 100 08/31/18 13:23 - Medical History PMH: Bipolar Disorder, Depression, Diabetes, HTN (uncompliant with meds), Paranoia, Schizophrenia Surgical History: Family History: States: Diabetes, Hypertension - Social History Hx Tobacco Use: Yes Hx Alcohol Use: Yes (BEER) Hx Substance Use: No - Immunization History Hx Tetanus Toxoid Vaccination: No Hx Influenza Vaccination: No Hx Pneumococcal Vaccination: No Review Of Systems Constitutional: Negative for: Fever, Chills ENT: Positive for: Throat Pain Cardiovascular: Negative for: Chest Pain Respiratory: Positive for: Cough. Negative for: Shortness of Breath Gastrointestinal: Negative for: Nausea, Vomiting Musculoskeletal: Positive for: Shoulder Pain Skin: Negative for: Rash Physical Exam - Physical Exam Appears: Non-toxic, No Acute Distress Skin: Warm, Dry, No Rash Head: Atraumatic, Normacephalic Eye(s): bilateral: Normal Inspection Ear(s): Bilateral: Normal Oral Mucosa: Moist Throat: Erythema, No Exudate, No Drooling Neck: Normal ROM, Supple Cardiovascular: Rhythm Regular Respiratory: Normal Breath Sounds, No Rales, No Rhonchi, No Wheezing Gastrointestinal/Abdominal: Soft, No Tenderness, No Guarding, No Rebound Extremity: Tenderness (right shoulder ), Capillary Refill (<2 seconds), No Deformity Neurological/Psych: Oriented x3, Normal Speech, Normal Cognition, Normal Motor, Normal Sensation ED Course And Treatment - Laboratory Results Result Diagrams: 08/31/18 14:45 08/31/18 14:45 ECG: Interpreted By Me, Viewed By Me ECG Rhythm: Sinus Bradycardia ECG Interpretation: No Changes From Prior Interpretation Of ECG: LVH with repolarization, no interval change from EKG on 08/18/18 Rate From EC (bpm) O2 Sat by Pulse Oximetry: 100 (RA) Pulse Ox Interpretation: Normal Medical Decision Making Medical Decision Making: long standing h/o of non complaince. right shoulder pain msk in origin. labs to r/o hypertensvie emergency labs neg. cr baseline b/p improve.d discussed importance of complaince and outpt fu. Disposition - Disposition Referrals: [facility] [Outside] [facility] [Outside] [facility] [place] [Outside] Disposition: HOME/ ROUTINE Disposition Time: 18:00 Condition: STABLE Additional Instructions: follow up with specialist. return to er with worsening symptoms or cocnerns. please take your home medications as prescribed. Instructions: Shoulder Sprain, Viral Syndrome (DC) Forms: [employer] (Telugu) - Clinical Impression Clinical Impression: Shoulder pain, Hypertension - Scribe Statement The provider has reviewed the documentation as recorded by the Scribmodesta Gupta All medical record entries made by the Scribe were at my direction and personally dictated by me. I have reviewed the chart and agree that the record accurately reflects my personal performance of the history, physical exam, medical decision making, and the department course for this patient. I have also personally directed, reviewed, and agree with the discharge instructions and disposition.
--- NOTE | 2018-08-31 14:37 | RAD ---
Date of service: 08/31/2018 HISTORY: chest pain COMPARISON: Portable chest 01/17/2018. TECHNIQUE: Chest PA and lateral FINDINGS: LUNGS: No active pulmonary disease. PLEURA: No significant pleural effusion identified. No pneumothorax apparent. CARDIOVASCULAR: Calcific atherosclerotic changes are seen related to the thoracic aorta. Borderline cardiomegaly. No pulmonary vascular congestion. OSSEOUS STRUCTURES: No significant abnormalities. VISUALIZED UPPER ABDOMEN: Normal. OTHER FINDINGS: None. IMPRESSION: Borderline cardiomegaly. No interval pulmonary disease appreciable.
[2018-08-31 14:49] LABS: BASO % 0.3 % (0.0-2.0); EOS # 0.2 K/uL (0.0-0.7); EOS % 3.2 % (0.0-4.0); HEMOGLOBIN 11.6 g/dL (11.0-16.0); LYMPH # 1.9 K/uL (1.0-4.3); LYMPH % 35.9 % (20.0-40.0); MEAN CELL VOLUME 89.3 fL (81.0-99.0); MEAN CORPUSCULAR HEMOGLOBIN 30.2 pg (27.0-31.0); MEAN CORPUSCULAR HGB CONC 33.8 g/dL (33.0-37.0); MEAN PLATELET VOLUME 8.9 fL (7.2-11.7); MONO # 0.4 K/uL (0.0-0.8); MONO % 8.5 % (0.0-10.0); NEUT # 2.7 K/uL (1.8-7.0); NEUT % 52.1 % (50.0-75.0); RBC 3.83 Mil/uL (3.80-5.20); RED CELL DISTRIBUTION WIDTH 14.2 % (11.5-14.5); WHITE BLOOD COUNT 5.2 K/uL (4.8-10.8)
[2018-08-31 15:00] LABS: PROTHROMBIN TIME 10.7 SECONDS (9.7-12.2)
[2018-08-31 15:04] LABS: ALB/GLOB RATIO 1.3 (1.0-2.1); ALBUMIN 4.1 g/dL (3.5-5.0); CALCIUM 8.6 mg/dl (8.6-10.4)
[2018-08-31 15:16] LABS: TROPONIN I 0.022 ng/mL (0.00-0.120)
[2018-08-31 15:17] LABS: INFLUENZA A B NEGATIVE FOR FLU A/B (NEGATIVE)
[2018-08-31 15:29] LABS: HCG,QUALITATIVE URINE NEGATIVE (NEGATIVE)
--- NOTE | 2018-08-31 15:29 | RAD ---
Date of service: 08/31/2018 PROCEDURE: Radiographs of the Right Shoulder HISTORY: pain COMPARISON: No prior. FINDINGS: BONES: No acute fracture or destructive bony lesion identified. JOINTS: The glenohumeral joint appears unremarkable. The acromioclavicular joint appears degenerated moderately with inferior osteophytes minimally developed. Joint space narrowed. SOFT TISSUES: Normal. OTHER FINDINGS: None. IMPRESSION: No acute fracture or dislocation right shoulder.
[2018-08-31 15:37] LABS: SQUAMOUS EPITHIAL 8 /hpf (0-5); URINE BILIRUBIN NEGATIVE (NEGATIVE); URINE BLOOD NEGATIVE (NEGATIVE); URINE CLARITY Clear (Clear); URINE COLOR Straw (YELLOW); URINE GLUCOSE (UA) NORMAL (Normal); URINE LEUKOCYTE ESTERASE NEG Leu/uL (Negative); URINE PROTEIN NEGATIVE (NEGATIVE); URINE UROBILINOGEN NORMAL mg/dL (0.2-1.0)
[2018-08-31 17:24] VITALS: RESP 18; O2SAT 100
[2018-08-31] MEDS ORDERED: Labetalol 25mg/5ml Syringe IVP STA (17:34)
[2018-08-31] MEDS ORDERED: Labetalol 5mg/ml (4ml) ONE (18:03)
[2018-08-31 18:35] VITALS: PULSE 65; TEMP 98
[2018-08-31 18:45] VITALS: BP 159/102
--- NOTE | 2018-09-01 23:43 | CARD ---
APPROVED REPORT Date of service: 08/31/2018 EKG Measurement Heart [id number] <Conclusion> Sinus bradycardia Possible Left atrial enlargement Left ventricular hypertrophy with repolarization abnormality Inferior infarct, age undetermined Abnormal ECG
== END 2018-08-31 18:52 | disposition home or self-care (01) ==
LOC: C.ER 12:47
DX: M25.511 Pain in right shoulder (principal); I10 Essential (primary) hypertension; E11.9 Type 2 diabetes mellitus without complications; F20.9 Schizophrenia, unspecified; F19.90 Other psychoactive substance use, unspecified, uncomplicated
CPT/HCPCS: 71046; 73030; 80053; 81001; 84484; 84703; 85025; 85610; 85730; 87070; 87430; 87804; 93005; 96374; 96375; 99285; J1885

== ENCOUNTER 2018-11-21 05:29 | Emergency (ER) | payer OTHER ==
[2018-11-21 05:44] VITALS: TEMP 97.4
--- NOTE | 2018-11-21 06:07 | C.PDOC ---
History Of Present Illness 53 year old female with PMHx of HTN presents to the ED c/o lower back pain that started after she lifted a heavy TV yesterday. Patient also reports she drank a beer. Patient states she is non complaint with her blood pressure medications, she is supposed to take Clonidine but has not taken it over the past 2 days. Patient denies fever, chills, headache, visual changes, dizziness, CP, SOB, palpitations, nausea, vomit, diarrhea, weakness, numbness. Chief Complaint (Nursing): Back Pain History Per: Patient History/Exam Limitations: no limitations Onset/Duration Of Symptoms: Days Current Symptoms Are (Timing): Still Present Quality Of Discomfort: "Pain" Exacerbating Factor(s): Movement Recent travel outside of the [place]: No Additional History Per: Patient Past Medical History Reviewed: Historical Data, Nursing Documentation, Vital Signs Vital Signs: Last Vital Signs Temp 97.4 F L 11/21/18 05:34 Pulse 104 H 11/21/18 05:34 Resp 20 11/21/18 05:34 BP Pulse Ox 100 11/21/18 05:34 - Medical History PMH: Bipolar Disorder, Depression, Diabetes, HTN (uncompliant with meds), Paranoia, Schizophrenia Denies: Chronic Kidney Disease Surgical History: Family History: States: Unknown Family Hx, Diabetes, Hypertension - Social History Hx Tobacco Use: Yes Hx Alcohol Use: Yes (BEER) Hx Substance Use: No - Immunization History Hx Tetanus Toxoid Vaccination: No Hx Influenza Vaccination: No Hx Pneumococcal Vaccination: No Review Of Systems Constitutional: Negative for: Fever, Chills Eyes: Negative for: Vision Change Cardiovascular: Negative for: Chest Pain, Palpitations Respiratory: Negative for: Cough, Shortness of Breath Gastrointestinal: Negative for: Nausea, Vomiting, Abdominal Pain Musculoskeletal: Positive for: Back Pain Neurological: Negative for: Weakness, Numbness, Headache, Dizziness Physical Exam - Physical Exam Appears: Non-toxic, No Acute Distress Skin: Normal Color, Warm, Dry Head: Atraumatic, Normacephalic Eye(s): bilateral: Normal Inspection, PERRL, EOMI Oral Mucosa: Moist Neck: Normal ROM, Supple Chest: Symmetrical Cardiovascular: Rhythm Regular Respiratory: Normal Breath Sounds, No Rales, No Rhonchi, No Wheezing Gastrointestinal/Abdominal: Soft, No Tenderness, No Guarding, No Rebound Extremity: Normal ROM, No Tenderness, No Swelling Neurological/Psych: Oriented x3, Normal Speech, Normal Cognition, Normal Motor, Normal Sensation Gait: Steady ED Course And Treatment O2 Sat by Pulse Oximetry: 100 (ON RA) Pulse Ox Interpretation: Normal Progress Note: Plan: - Flexeril 10 mg PO. - Toradol 30 mg IM. - Clonidine 0.3 mg PO. Patient;s blood pressure was unable to be obtained using machine, manual blood pressure was obtained which was 250/140. Patient reports she is non compliant with her medications, denies headache, CP, SOB, plapitations, visual changes dizziness, drug use.Pt said this is thew best reading she's heard of when in ER or PMD office. Disposition - Disposition Disposition Time: 07:05 Condition: FAIR Forms: [facility] (Czech) - Clinical Impression Clinical Impression: Low back strain, Hypertension, Rebound hypertension - PA / HUMAN SERVICES MANAGER / Resident Statement MD/DO has reviewed & agrees with the documentation as recorded. - Scribe Statement The provider has reviewed the documentation as recorded by the Scribe Pepe Rebollar All medical record entries made by the Scribe were at my direction and personally dictated by me. I have reviewed the chart and agree that the record accurately reflects my personal performance of the history, physical exam, medical decision making, and the department course for this patient. I have also personally directed, reviewed, and agree with the discharge instructions and disposition. Physician Patient Turnover Patient Signed Over To: Cristy Byers Handoff Comments: Pending labs and repeat BP for disposition
[2018-11-21 07:31] VITALS: O2SAT 97
[2018-11-21 07:48] LABS: EOS # 0.1 K/uL (0.0-0.7); HEMOGLOBIN 11.6 g/dL (11.0-16.0)
[2018-11-21 07:55] LABS: BASO # 0.1 K/uL (0.0-0.2); BASO % 1.1 % (0.0-2.0); EOS % 0.8 % (0.0-4.0); LYMPH # 1.4 K/uL (1.0-4.3); LYMPH % 21.7 % (20.0-40.0); MEAN CELL VOLUME 90.5 fL (81.0-99.0); MEAN CORPUSCULAR HEMOGLOBIN 30.1 pg (27.0-31.0); MEAN CORPUSCULAR HGB CONC 33.2 g/dL (33.0-37.0); MEAN PLATELET VOLUME 9.5 fL (7.2-11.7); MONO # 0.5 K/uL (0.0-0.8); MONO % 8.1 % (0.0-10.0); NEUT # 4.5 K/uL (1.8-7.0); NEUT % 68.3 % (50.0-75.0); RBC 3.84 Mil/uL (3.80-5.20); RED CELL DISTRIBUTION WIDTH 15.5 % (11.5-14.5); WHITE BLOOD COUNT 6.5 K/uL (4.8-10.8)
[2018-11-21 08:18] LABS: ALB/GLOB RATIO 1.5 (1.0-2.1); ALBUMIN 4.4 g/dL (3.5-5.0); CALCIUM 8.6 mg/dl (8.6-10.4)
[2018-11-21 08:27] LABS: TROPONIN I 0.028 ng/mL (0.00-0.120)
[2018-11-21 09:06] VITALS: BP 192/110; PULSE 71; RESP 20
--- NOTE | 2018-11-22 13:53 | CARD ---
APPROVED REPORT Date of service: 11/21/2018 EKG Measurement Heart [id number] <Conclusion> Normal sinus rhythm Possible Left atrial enlargement Left ventricular hypertrophy with repolarization abnormality Inferior infarct, age undetermined Abnormal ECG
== END 2018-11-21 10:57 | disposition home or self-care (01) ==
LOC: C.ER 05:29
DX: S39.012A Strain of muscle, fascia and tendon of lower back, initial encounter (principal); X50.0XXA Overexertion from strenuous movement or load, initial encounter; I10 Essential (primary) hypertension; Z91.14 Patient's other noncompliance with medication regimen; F17.210 Nicotine dependence, cigarettes, uncomplicated

== ENCOUNTER 2018-12-06 13:00 | Inpatient (IN) | payer OTHER ==
--- NOTE | 2018-12-06 14:54 | C.PDOC ---
Time Seen by Provider: 12/06/18 13:47 Chief Complaint (Nursing): Back Pain Past Medical History Vital Signs: Last Vital Signs Temp 98.1 F 12/06/18 13:53 Pulse 80 12/06/18 13:53 Resp 12 12/06/18 13:53 BP 183/141 H 12/06/18 13:53 Pulse Ox 98 12/06/18 13:53 - Medical History PMH: Bipolar Disorder, Depression, Diabetes, HTN (uncompliant with meds), Paranoia, Schizophrenia Denies: Chronic Kidney Disease Surgical History: Family History: States: Unknown Family Hx, Diabetes, Hypertension - Social History Hx Tobacco Use: Yes Hx Alcohol Use: Yes (BEER) Hx Substance Use: No (denies) - Immunization History Hx Tetanus Toxoid Vaccination: No Hx Influenza Vaccination: No Hx Pneumococcal Vaccination: No ED Course And Treatment O2 Sat by Pulse Oximetry: 98 Disposition - Disposition
[2018-12-06 16:21] LABS: BASO % 0.3 % (0.0-2.0); EOS # 0.2 K/uL (0.0-0.7); EOS % 3.2 % (0.0-4.0); HEMOGLOBIN 12.1 g/dL (11.0-16.0); LYMPH # 1.9 K/uL (1.0-4.3); MEAN CELL VOLUME 90.8 fL (81.0-99.0); MEAN CORPUSCULAR HEMOGLOBIN 29.2 pg (27.0-31.0); MEAN CORPUSCULAR HGB CONC 32.2 g/dL (33.0-37.0); MEAN PLATELET VOLUME 9.3 fL (7.2-11.7); MONO # 0.4 K/uL (0.0-0.8); MONO % 7.9 % (0.0-10.0); NEUT # 2.4 K/uL (1.8-7.0); NEUT % 49.6 % (50.0-75.0); RBC 4.14 Mil/uL (3.80-5.20); WHITE BLOOD COUNT 4.7 K/uL (4.8-10.8)
--- NOTE | 2018-12-06 16:26 | C.PDOC ---
History Of Present Illness 53 y/o female,w/PMhx of HTN, presents to the ER complaining of persistent right sided lower back pain which has been present for the past few days. Patient was recently lifting a TV and had pain, she was evaluated in [facility] on 11/21/18. At the time, she was found to be non-compliant with her bp medications and her bp was 250/160. Patient reports that her bp is usually very high. She was treated with muscle relaxants and ant-inflammatory medications, then she was advised to follow up with her PMD. She notes that she has an appointment at the end of the month. Patient is also complaining of labia swelling. Denies having fever, chills, CP, SOB, nausea, vomiting, and urinary symptoms. Of note, patient has high bp in triage, her bp is 183/141. She notes that her bp is usually high like this and she took Clonidine 3.0 mg in the morning today. Time Seen by Provider: 12/06/18 13:47 Chief Complaint (Nursing): Back Pain History Per: Patient History/Exam Limitations: no limitations Onset/Duration Of Symptoms: Days Current Symptoms Are (Timing): Still Present Severity: Moderate Past Medical History Reviewed: Historical Data, Nursing Documentation, Vital Signs Vital Signs: Last Vital Signs Temp 98.1 F 12/06/18 13:53 Pulse 80 12/06/18 13:53 Resp 12 12/06/18 13:53 BP 196/118 H 12/06/18 15:51 Pulse Ox 98 12/06/18 16:16 - Medical History PMH: Bipolar Disorder, Depression, Diabetes, HTN (uncompliant with meds), Paranoia, Schizophrenia Denies: Chronic Kidney Disease Surgical History: Family History: States: Diabetes, Hypertension - Social History Hx Tobacco Use: Yes Hx Alcohol Use: Yes (BEER) Hx Substance Use: No (denies) - Immunization History Hx Tetanus Toxoid Vaccination: No Hx Influenza Vaccination: No Hx Pneumococcal Vaccination: No Review Of Systems Except As Marked, All Systems Reviewed And Found Negative. Constitutional: Negative for: Fever, Chills Cardiovascular: Negative for: Chest Pain Respiratory: Negative for: Shortness of Breath Gastrointestinal: Negative for: Nausea, Vomiting Genitourinary: Negative for: Dysuria, Frequency, Incontinence, Hematuria Musculoskeletal: Positive for: Back Pain Physical Exam - Physical Exam Appears: Other (lethargic, sleepy, arousable) Skin: Normal Color, Warm, Dry Head: Atraumatic, Normacephalic Eye(s): bilateral: Normal Inspection Nose: Normal Oral Mucosa: Moist Neck: Supple Chest: Symmetrical Cardiovascular: Rhythm Regular Respiratory: Normal Breath Sounds, No Rales, No Rhonchi, No Wheezing Back: No Straight Leg Raising, Other (tenderness to right lower back) Pelvic: Normal External Exam Neurological/Psych: Oriented x3, Normal Speech ED Course And Treatment - Laboratory Results Result Diagrams: 12/06/18 16:11 12/06/18 16:11 Lab Interpretation: Abnormal (BUN 30, Cr 1.8) O2 Sat by Pulse Oximetry: 98 (RA) Pulse Ox Interpretation: Normal Reevaluation Time: 18:56 Reassessment Condition: Unchanged - Physician Consult Information Time Consulting Physician Contacted: 18:56 Physician Contacted: Piper Jo Outcome Of Conversation: Patient to be admitted for BP management Medical Decision Making Medical Decision Making: Plan: --Labs --UA --Flexeril PO --Tylenol PO Disposition - Disposition Disposition: HOSPITALIZED Disposition Time: 18:57 Condition: FAIR - POA Present On Arrival: None - Clinical Impression Clinical Impression: Hypertensive urgency - Scribe Statement The provider has reviewed the documentation as recorded by the Scribe Adriel Vasquez Provider Attestation: All medical record entries made by the Scribe were at my direction and p ersonally dictated by me. I have reviewed the chart and agree that the record accurately reflects my personal performance of the history, physical exam, medical decision making, and the department course for this patient. I have also personally directed, reviewed, and agree with the discharge instructions and disposition.
[2018-12-06 16:54] LABS: ALB/GLOB RATIO 1.4 (1.0-2.1); CALCIUM 8.5 mg/dl (8.6-10.4)
[2018-12-06 17:18] LABS: SQUAMOUS EPITHIAL 4 /hpf (0-5); URINE BACTERIA RARE (<OCC); URINE BILIRUBIN NEGATIVE (NEGATIVE); URINE BLOOD NEGATIVE (NEGATIVE); URINE CLARITY Clear (Clear); URINE COLOR Yellow (YELLOW); URINE GLUCOSE (UA) NORMAL (Normal); URINE LEUKOCYTE ESTERASE TRACE Leu/uL (Negative); URINE PROTEIN 2+ mg/dL (NEGATIVE); URINE UROBILINOGEN NORMAL mg/dL (0.2-1.0)
[2018-12-06] MEDS ORDERED: Enalaprilat 2.5 MG/2 ML IV ONE (19:10)
--- NOTE | 2018-12-07 10:30 | CP.PCM.CON ---
History of Present Illness - History of Present Illness History of Present Illness: This patient who is 53 years of age Afro-[place] female I was called to see the patient for abnormal kidney function. Patient is not aware about previous chronic kidney disease and she was taking nonsteroidal anti-inflammatory drug a nd the history from the medical record as follow Patient stated no dysuria no difficulty urination 53 y/o female,w/PMhx of HTN, presents to the ER complaining of persistent right sided lower back pain which has been present for the past few days. Patient was recently lifting a TV and had pain, she was evaluated in [facility] ER on 11/21/18. At the time, she was found to be non-compliant with her bp medications and her bp was 250/160. Patient reports that her bp is usually very high. She was treated with muscle relaxants and ant-inflammatory medications, then she was advised to follow up with her PMD. She notes that she has an appointment at the end of the month. Patient is also complaining of labia swelling. Denies having fever, chills, CP, SOB, nausea, vomiting, and urinary symptoms. Of note, patient has high bp in triage, her bp is 183/141. She notes that her bp is usually high Social history not contributory Review of Systems - Constitutional Constitutional: absent: Anorexia, Chills - Cardiovascular Cardiovascular: absent: Dyspnea, Edema, Leg Ulcers - Respiratory Respiratory: absent: Cough, Dyspnea, Hemoptysis - Gastrointestinal Gastrointestinal: absent: Coffee Ground Emesis - Genitourinary Genitourinary: absent: Dysuria, Nocturia - Musculoskeletal Musculoskeletal: As Per HPI, Back Pain - Neurological Neurological: absent: Confusion, Dizziness, Focal Weakness - Psychiatric Psychiatric: As Per HPI - Endocrine Endocrine: absent: Fatigue - Hematologic/Lymphatic Hematologic: absent: Easy Bleeding Past Patient History - Infectious Disease Hx of Infectious Diseases: None - Past Medical History & Family History Past Medical History?: Yes - Past Social History Smoking Status: Never Smoked - CARDIAC Hx Cardiac Disorders: Yes Hx Hypertension: Yes (uncompliant with meds) - PULMONARY Hx Respiratory Disorders: No - NEUROLOGICAL Hx Neurological Disorder: No - HEENT Hx HEENT Problems: No - RENAL Hx Chronic Kidney Disease: No - ENDOCRINE/METABOLIC Hx Endocrine Disorders: Yes Hx Diabetes Mellitus Type 2: Yes - HEMATOLOGICAL/ONCOLOGICAL Hx Blood Disorders: No - INTEGUMENTARY Hx Dermatological Problems: No - MUSCULOSKELETAL/RHEUMATOLOGICAL Hx Musculoskeletal Disorders: Yes Hx Back Pain: Yes Hx Falls: No - GASTROINTESTINAL Hx Gastrointestinal Disorders: No - GENITOURINARY/GYNECOLOGICAL Hx Genitourinary Disorders: No - PSYCHIATRIC Hx Psychophysiologic Disorder: Yes Hx Bipolar Disorder: Yes Hx Depression: Yes Hx Paranoia: Yes Hx Schizophrenia: Yes Hx Substance Use: No (denies) - SURGICAL HISTORY Hx Surgeries: Yes Hx Section: Yes - ANESTHESIA Hx Anesthesia: Yes Hx Anesthesia Reactions: No Hx Malignant Hyperthermia: No Meds Allergies/Adverse Reactions: Allergies Allergy/AdvReac Type Severity Reaction Status Date / Time No Known Allergies Allergy Verified 11/21/18 05:44 - Medications Medications: Current Medications Acetaminophen (Tylenol 325mg Tab) 650 mg PO Q6 PRN PRN Reason: Headache Amlodipine Besylate (Norvasc) 10 mg PO DAILY [facility] Last Admin: 12/07/18 09:36 Dose: 10 mg Clonidine HCl (Catapres) 0.2 mg PO Q8 [facility] Last Admin: 12/07/18 05:50 Dose: 0.2 mg Heparin Sodium (Porcine) (Heparin) 5,000 units SC Q12 [facility] Last Admin: 12/07/18 09:36 Dose: 5,000 units Hydralazine HCl (Apresoline) 10 mg IVP STAT [facility] Ibuprofen (Motrin Tab) 600 mg PO TID [facility] Isosorbide Mononitrate (Imdur) 60 mg PO DAILY [facility] Last Admin: 12/07/18 09:36 Dose: 60 mg Pneumococcal Polyvalent Vaccine (Pneumovax 23 Vaccine) 0.5 ml IM .ONCE ONE Stop: 12/08/18 10:01 Physical Exam - Constitutional Appears: No Acute Distress - Eye Exam Eye Exam: absent: Conjunctival injection - ENT Exam ENT Exam: Mucous Membranes Dry - Neck Exam Neck exam: Negative for: Lymphadenopathy - Respiratory Exam Respiratory Exam: NORMAL BREATHING PATTERN. absent: Chest Wall Tenderness - Cardiovascular Exam Cardiovascular Exam: REGULAR RHYTHM. absent: Gallop, JVD, Rubs - GI/Abdominal Exam GI & Abdominal Exam: Normal Bowel Sounds. absent: Guarding - Extremities Exam Extremities exam: Negative for: calf tenderness - Back Exam Back exam: absent: CVA tenderness (L), CVA tenderness (R) - Neurological Exam Neurological exam: Alert - Psychiatric Exam Psychiatric exam: Normal Affect Results - Vital Signs Recent Vital Signs: Last Vital Signs Temp 97.9 F 12/07/18 07:25 Pulse 56 L 12/07/18 07:25 Resp 20 12/07/18 07:25 BP 183/108 H 12/07/18 07:25 Pulse Ox 98 12/07/18 07:25 - Labs Result Diagrams: 12/06/18 16:11 12/06/18 16:11 Labs: Laboratory Results - last 24 hr 12/06/18 12/06/18 12/06/18 16:11 16:11 17:10 WBC 4.7 L RBC 4.14 Hgb 12.1 Hct 37.6 MCV 90.8 MCH 29.2 MCHC 32.2 L RDW 15.0 H Plt Count 277 MPV 9.3 Neut % (Auto) 49.6 L Lymph % (Auto) 39.0 [place] % (Auto) 7.9 Eos % (Auto) 3.2 Baso % (Auto) 0.3 Neut # (Auto) 2.4 Lymph # (Auto) 1.9 [place] # (Auto) 0.4 Eos # (Auto) 0.2 Baso # (Auto) 0.0 Sodium 138 Potassium 4.4 Chloride 104 Carbon Dioxide 25 Anion Gap 12 BUN 30 H Creatinine 1.8 H Est GFR ( Amer) 36 Est GFR (Non-Af Amer) 29 Random Glucose 136 H D Calcium 8.5 L Total Bilirubin 0.3 AST 22 ALT 11 Alkaline Phosphatase 53 Total Protein 6.8 Albumin 4.0 Globulin 2.9 Albumin/Globulin Ratio 1.4 Urine Color Yellow Urine Clarity Clear Urine pH 5.0 Ur Specific [place] 1.024 Urine Protein 2+ H Urine Glucose (UA) Normal Urine Ketones Negative Urine Blood Negative Urine Nitrate Negative Urine Bilirubin Negative Urine Urobilinogen Normal Ur Leukocyte Esterase Trace Urine WBC (Auto) 3 Urine RBC (Auto) 1 Ur Squamous Epith Cells 4 Urine Bacteria Rare Assessment & Plan (1) GEORGE (acute kidney injury) Assessment and Plan: It appears that this patient has acute kidney injury. Whether this is related to nonsteroidal anti-inflammatory drug or the uncontrolled hypertension or both since we do not have the previous BUN and creatinine or kidney function on her at the present. Low back pain and/sciatic pain Hypertension Recommendation Discontinue all nonsteroidal anti-inflammatory drug No ASHLEE inhibitor at the present or ARBS Blood pressure is still elevated suggest to add hydralazine 50 mg twice daily p.o. And increase clonidine 0.3 mg every 8 hours if the blood pressure still elevated. Urinalysis show proteinuria therefore we will get spot urine for ratio of protein to creatinine ratio Ultrasound of the kidney suggested to check for sign of renal artery stenosis? And to check the kidney size Force fluid by mouth Status: Acute (2) Sciatic leg pain Status: Acute
--- NOTE | 2018-12-07 19:33 | CP.PCM.HP ---
Past Patient History - Infectious Disease Hx of Infectious Diseases: None - Past Medical History & Family History Past Medical History?: Yes - Past Social History Smoking Status: Never Smoked - CARDIAC Hx Cardiac Disorders: Yes Hx Hypertension: Yes (uncompliant with meds) - PULMONARY Hx Respiratory Disorders: No - NEUROLOGICAL Hx Neurological Disorder: No - HEENT Hx HEENT Problems: No - RENAL Hx Chronic Kidney Disease: No - ENDOCRINE/METABOLIC Hx Endocrine Disorders: Yes Hx Diabetes Mellitus Type 2: Yes - HEMATOLOGICAL/ONCOLOGICAL Hx Blood Disorders: No - INTEGUMENTARY Hx Dermatological Problems: No - MUSCULOSKELETAL/RHEUMATOLOGICAL Hx Musculoskeletal Disorders: Yes Hx Back Pain: Yes Hx Falls: No - GASTROINTESTINAL Hx Gastrointestinal Disorders: No - GENITOURINARY/GYNECOLOGICAL Hx Genitourinary Disorders: No - PSYCHIATRIC Hx Psychophysiologic Disorder: Yes Hx Bipolar Disorder: Yes Hx Depression: Yes Hx Paranoia: Yes Hx Schizophrenia: Yes Hx Substance Use: No (denies) - SURGICAL HISTORY Hx Surgeries: Yes Hx Section: Yes - ANESTHESIA Hx Anesthesia: Yes Hx Anesthesia Reactions: No Hx Malignant Hyperthermia: No Meds Allergies/Adverse Reactions: Allergies Allergy/AdvReac Type Severity Reaction Status Date / Time No Known Allergies Allergy Verified 11/21/18 05:44 Physical Exam - Constitutional Appears: Well - Head Exam Head Exam: ATRAUMATIC, NORMAL INSPECTION, NORMOCEPHALIC - Eye Exam Eye Exam: EOMI, Normal appearance, PERRL Pupil Exam: NORMAL ACCOMODATION, PERRL - ENT Exam ENT Exam: Mucous Membranes Moist, Normal Exam - Neck Exam Neck exam: Positive for: Normal Inspection - Respiratory Exam Respiratory Exam: Decreased Breath Sounds - Cardiovascular Exam Cardiovascular Exam: REGULAR RHYTHM, +S1, +S2 - GI/Abdominal Exam GI & Abdominal Exam: Diminished Bowel Sounds, Soft - Rectal Exam Rectal Exam: Deferred Results - Vital Signs Recent Vital Signs: Last Vital Signs Temp 97.5 F L 12/07/18 16:30 Pulse 67 12/07/18 16:30 Resp 20 12/07/18 16:30 BP 126/82 12/07/18 16:30 Pulse Ox 96 12/07/18 16:30 - Labs Result Diagrams: 12/06/18 16:11 12/06/18 16:11 Labs: Laboratory Results - last 24 hr 12/07/18 13:38 Phosphorus 4.3
--- NOTE | 2018-12-07 20:08 | CARD ---
APPROVED REPORT Date of service: 12/06/2018 EKG Measurement Heart [id number] <Conclusion> Normal sinus rhythm Possible Left atrial enlargement Left ventricular hypertrophy with repolarization abnormality Abnormal ECG
[2018-12-07 23:24] LABS: CREATININE, RANDOM URINE 200.7 mg/dL
[2018-12-08] MEDS ORDERED: Pneumococcal 23-Valent Vaccine IM ONE (10:00)
--- NOTE | 2018-12-08 10:35 | CP.PCM.PN ---
Subjective - Date & Time of Evaluation Date of Evaluation: 12/08/18 Time of Evaluation: 10:32 - Subjective Subjective: Patient feeling good no chest pain no shortness of breath Vital signs stable blood pressure better controlled Objective - Vital Signs/Intake and Output Vital Signs (last 24 hours): Temp Pulse Resp BP Pulse Ox 98.3 F 68 18 144/81 96 12/08/18 07:25 12/08/18 09:18 12/08/18 07:25 12/08/18 09:18 12/08/18 07:25 Intake and Output: 12/08/18 12/08/18 06:59 18:59 Intake Total 600 Balance 600 - Medications Medications: Current Medications Acetaminophen (Tylenol 325mg Tab) 650 mg PO Q6 PRN PRN Reason: Headache Last Admin: 12/07/18 13:35 Dose: 650 mg Amlodipine Besylate (Norvasc) 10 mg PO DAILY [facility] Last Admin: 12/08/18 09:17 Dose: 10 mg Clonidine HCl (Catapres) 0.2 mg PO Q8 [facility] Last Admin: 12/08/18 05:31 Dose: 0.2 mg Heparin Sodium (Porcine) (Heparin) 5,000 units SC Q12 [facility] Last Admin: 12/08/18 09:17 Dose: 5,000 units Hydralazine HCl (Apresoline) 25 mg PO TID [facility] Last Admin: 12/08/18 09:17 Dose: 25 mg Ibuprofen (Motrin Tab) 600 mg PO TID [facility] Influenza Virus Vaccine (Flucelvax Quad [id number] Syr) 60 mcg IM .ONCE ONE Stop: 12/08/18 12:01 Isosorbide Mononitrate (Imdur) 60 mg PO DAILY [facility] Last Admin: 12/08/18 09:17 Dose: 60 mg - Labs Labs: 12/06/18 16:11 12/06/18 16:11 - Constitutional Appears: No Acute Distress - Eye Exam Eye Exam: absent: Conjunctival injection - ENT Exam ENT Exam: absent: Mucous Membranes Moist - Neck Exam Neck Exam: absent: Lymphadenopathy - Respiratory Exam Respiratory Exam: NORMAL BREATHING PATTERN. absent: Chest Wall Tenderness - Cardiovascular Exam Cardiovascular Exam: REGULAR RHYTHM. absent: Gallop, JVD, Rubs - GI/Abdominal Exam GI & Abdominal Exam: Soft, Normal Bowel Sounds - Extremities Exam Extremities Exam: absent: Calf Tenderness - Back Exam Back Exam: absent: CVA tenderness (L), CVA tenderness (R) - Neurological Exam Neurological Exam: Alert - Psychiatric Exam Psychiatric exam: Normal Affect - Skin Skin Exam: absent: Cyanosis Assessment and Plan (1) GEORGE (acute kidney injury) Assessment & Plan: Acute kidney injury I am not sure if this is superimposed on mild chronic kidney disease perhaps? Related to hypertension. Hypertension Recommendation Pressure better controlled Patient may need adjustment for antihypertensive medication by increasing the dose as I mentioned in my previous consultation as needed Again suggested do ultrasound of the kidney and that could be done as outpatient if the patient is leaving And further workup for hypertension could be done as outpatient including 24 hours urine for metanephrine We need to repeat BMP stat to follow-up on kidney function Status: Acute (2) Sciatic leg pain Status: Acute
[2018-12-08 11:54] LABS: CALCIUM 8.5 mg/dl (8.6-10.4)
[2018-12-08] MEDS ORDERED: Influenza Vaccine 60 mcg/0.5 mL SYR (4YR UP) IM ONE (12:00)
--- NOTE | 2018-12-08 18:40 | CP.PCM.PN ---
Subjective - Date & Time of Evaluation Date of Evaluation: 12/08/18 Time of Evaluation: 10:00 - Subjective Subjective: clinically same Objective - Vital Signs/Intake and Output Vital Signs (last 24 hours): Temp Pulse Resp BP Pulse Ox 97.2 F L 78 20 144/89 98 12/08/18 16:00 12/08/18 16:16 12/08/18 16:00 12/08/18 16:00 12/08/18 16:00 Intake and Output: 12/08/18 12/08/18 06:59 18:59 Intake Total 600 600 Balance 600 600 - Medications Medications: Current Medications Acetaminophen (Tylenol 325mg Tab) 650 mg PO Q6 PRN PRN Reason: Headache Last Admin: 12/08/18 13:34 Dose: 650 mg Amlodipine Besylate (Norvasc) 10 mg PO DAILY [facility] Last Admin: 12/08/18 09:17 Dose: 10 mg Clonidine HCl (Catapres) 0.2 mg PO Q8 [facility] Last Admin: 12/08/18 13:35 Dose: 0.2 mg Heparin Sodium (Porcine) (Heparin) 5,000 units SC Q12 [facility] Last Admin: 12/08/18 09:17 Dose: 5,000 units Hydralazine HCl (Apresoline) 25 mg PO TID [facility] Last Admin: 12/08/18 13:35 Dose: 25 mg Ibuprofen (Motrin Tab) 600 mg PO TID [facility] Isosorbide Mononitrate (Imdur) 60 mg PO DAILY [facility] Last Admin: 12/08/18 09:17 Dose: 60 mg - Labs Labs: 12/06/18 16:11 12/08/18 11:30 - Constitutional Appears: Well - Head Exam Head Exam: ATRAUMATIC, NORMAL INSPECTION, NORMOCEPHALIC - Eye Exam Eye Exam: EOMI, Normal appearance, PERRL Pupil Exam: NORMAL ACCOMODATION, PERRL - ENT Exam ENT Exam: Mucous Membranes Moist, Normal Exam - Neck Exam Neck Exam: Full ROM, Normal Inspection. absent: Lymphadenopathy - Respiratory Exam Respiratory Exam: Decreased Breath Sounds - Cardiovascular Exam Cardiovascular Exam: REGULAR RHYTHM, +S1, +S2 - GI/Abdominal Exam GI & Abdominal Exam: Soft, Diminished Bowel Sounds - Rectal Exam Rectal Exam: Deferred
--- NOTE | 2018-12-09 08:40 | CP.PCM.PN ---
Subjective - Date & Time of Evaluation Date of Evaluation: 12/09/18 Time of Evaluation: 08:36 - Subjective Subjective: RENAL feels ok pe: vs as below gen: nad sclera: anicteric op: clear neck: supple cv: +S1+s2 no rub lungs: cta b/l abd; soft nt nd no organomegaly ext: no edema neuro: A+OX3 psych: nml affect skin no rash imp: CKD/ Hypertensive kidney disease plan: pt states leaving today. renal aa duplex were ordered would also recc check renin and mary level if she stays would be reasonable to trial a low dose helen or arb and monitor renal response also would be reasonable to trial chlorthalidone. if discharged can follow up and we can continue titration as outpt Objective - Vital Signs/Intake and Output Vital Signs (last 24 hours): Temp Pulse Resp BP Pulse Ox 98.2 F 67 20 163/87 H 96 12/09/18 07:00 12/09/18 08:00 12/09/18 07:00 12/09/18 07:00 12/09/18 07:00 - Medications Medications: Current Medications Acetaminophen (Tylenol 325mg Tab) 650 mg PO Q6 PRN PRN Reason: Headache Last Admin: 12/08/18 22:28 Dose: 650 mg Amlodipine Besylate (Norvasc) 10 mg PO DAILY [facility] Last Admin: 12/08/18 09:17 Dose: 10 mg Clonidine HCl (Catapres) 0.2 mg PO Q8 [facility] Last Admin: 12/09/18 05:39 Dose: 0.2 mg Heparin Sodium (Porcine) (Heparin) 5,000 units SC Q12 [facility] Last Admin: 12/08/18 21:42 Dose: 5,000 units Hydralazine HCl (Apresoline) 25 mg PO TID [facility] Last Admin: 12/08/18 18:48 Dose: 25 mg Ibuprofen (Motrin Tab) 600 mg PO TID [facility] Isosorbide Mononitrate (Imdur) 60 mg PO DAILY [facility] Last Admin: 12/08/18 09:17 Dose: 60 mg - Labs Labs: 12/06/18 16:11 12/08/18 11:30
[2018-12-09 16:36] VITALS: BP 167/91; PULSE 77; RESP 18; TEMP 97.7; O2SAT 98
--- NOTE | 2018-12-09 18:03 | CP.PCM.PN ---
Subjective - Date & Time of Evaluation Date of Evaluation: 12/09/18 Time of Evaluation: 11:00 - Subjective Subjective: ALERT AND ORIENTEDX3, DENIES SOB OR CHEST PAINS OR DISTRESS. Objective - Vital Signs/Intake and Output Vital Signs (last 24 hours): Temp Pulse Resp BP Pulse Ox 97.7 F 77 18 167/91 H 98 12/09/18 15:35 12/09/18 15:35 12/09/18 15:35 12/09/18 15:35 12/09/18 15:35 - Medications Medications: Current Medications Acetaminophen (Tylenol 325mg Tab) 650 mg PO Q6 PRN PRN Reason: Headache Last Admin: 12/08/18 22:28 Dose: 650 mg Amlodipine Besylate (Norvasc) 10 mg PO DAILY [facility] Last Admin: 12/09/18 10:20 Dose: 10 mg Clonidine HCl (Catapres) 0.2 mg PO Q8 [facility] Last Admin: 12/09/18 14:04 Dose: 0.2 mg Heparin Sodium (Porcine) (Heparin) 5,000 units SC Q12 [facility] Last Admin: 12/09/18 10:20 Dose: 5,000 units Hydralazine HCl (Apresoline) 25 mg PO TID [facility] Last Admin: 12/09/18 14:04 Dose: 25 mg Ibuprofen (Motrin Tab) 600 mg PO TID [facility] Isosorbide Mononitrate (Imdur) 60 mg PO DAILY [facility] Last Admin: 12/09/18 10:20 Dose: 60 mg - Labs Labs: 12/06/18 16:11 12/08/18 11:30 Assessment and Plan - Assessment and Plan (Free Text) Assessment: Patient admitted with uncontrolled HTN, seen and examined. BP improving slowly, denies any chest pain or sob. Discussed with DR Guru Jo, plan to discharge home today on present medications. Advised to follow up with the nephrologyst and PMD in 1 week for further work up and treatment.
== END 2018-12-09 18:00 | disposition home or self-care (01) | DRG 560 ==
LOC: C.ER 13:00 → C.6T 18:52
PROVIDERS: ADMIT Internal Medicine Nephrology; ATTEND Internal Medicine Nephrology
DX: M54.40 Lumbago with sciatica, unspecified side (principal); N17.9 Acute kidney failure, unspecified; E11.22 Type 2 diabetes mellitus with diabetic chronic kidney disease; F20.0 Paranoid schizophrenia; N18.9 Chronic kidney disease, unspecified; I12.9 Hypertensive chronic kidney disease with stage 1 through stage 4 chronic kidney disease, or unspecified chronic kidney disease; I16.0 Hypertensive urgency; F31.9 Bipolar disorder, unspecified; Z91.14 Patient's other noncompliance with medication regimen; Z87.891 Personal history of nicotine dependence

== ENCOUNTER 2019-02-15 14:09 | Observation (INO) | payer OTHER ==
--- NOTE | 2019-02-15 15:07 | C.PDOC ---
History Of Present Illness 53 year old female presents to the ED c/o elevated blood pressure and flushed/fullness in her face. Patient reports she is not currently taking her clonidine, hydrochlorothiazide and norvasc because she claims "forgets". Patient has multiple admission for uncontrolled HTN. Patient with PMHx schizophrenia, bipolar disorder with her boyfriend at bedside. Patient denies fever, chills, headache, visual changes, CP, SOB, palpitations, weakness, numbness. Time Seen by Provider: 02/15/19 14:49 Chief Complaint (Nursing): High Blood Pressure History Per: Patient History/Exam Limitations: no limitations Onset/Duration Of Symptoms: Days Current Symptoms Are (Timing): Still Present Quality Of Symptoms: Asymptomatic Exacerbating Factor(s): Pos: Recently Missed Doses Of Medication Recent travel outside of the [place]: No Additional History Per: Patient Past Medical History Reviewed: Historical Data, Nursing Documentation, Vital Signs Vital Signs: Last Vital Signs Temp 97.4 F L 02/15/19 14:15 Pulse 68 02/15/19 14:49 Resp 16 02/15/19 14:49 BP 190/125 H 02/15/19 14:49 Pulse Ox 99 02/15/19 14:49 - Medical History PMH: Bipolar Disorder, Depression, Diabetes, HTN (Non-compliant with meds), Paranoia, Schizophrenia Denies: Chronic Kidney Disease Surgical History: Family History: States: Unknown Family Hx, Diabetes, Hypertension - Social History Hx Tobacco Use: Yes Hx Alcohol Use: Yes Hx Substance Use: Yes (denies) - Immunization History Hx Tetanus Toxoid Vaccination: No Hx Influenza Vaccination: No Hx Pneumococcal Vaccination: No Review Of Systems Constitutional: Negative for: Fever, Chills Eyes: Negative for: Vision Change Cardiovascular: Negative for: Chest Pain, Palpitations Respiratory: Negative for: Shortness of Breath Gastrointestinal: Negative for: Nausea, Vomiting, Abdominal Pain Skin: Negative for: Rash Neurological: Negative for: Weakness, Numbness, Headache, Dizziness Physical Exam - Physical Exam Appears: Non-toxic, No Acute Distress, Other (black female) Skin: Normal Color, Warm, Dry Head: Atraumatic, Normacephalic Eye(s): bilateral: Normal Inspection, PERRL, EOMI Oral Mucosa: Moist Neck: Normal ROM, Supple Chest: Symmetrical Cardiovascular: Rhythm Regular Respiratory: Normal Breath Sounds, No Rales, No Rhonchi, No Wheezing Gastrointestinal/Abdominal: Soft, No Tenderness, No Guarding, No Rebound Extremity: Normal ROM, No Tenderness, No Swelling Neurological/Psych: Oriented x3, Normal Speech, Normal Cognition, Other (bizarre affect) Gait: Steady ED Course And Treatment - Laboratory Results Result Diagrams: 02/15/19 15:19 02/15/19 15:19 ECG: Interpreted By Me ECG Rhythm: Sinus Rhythm ECG Interpretation: Normal Rate From EC O2 Sat by Pulse Oximetry: 99 (ON RA) Pulse Ox Interpretation: Normal - Radiology CXR: Interpreted by Me CXR Interpretation: Yes: No Acute Disease Reevaluation Time: 16:59 - Physician Consult Information Outcome Of Conversation: 5p; d/w Dr. Jeanna Jo- prior admitting MD, art to Tele obs Medical Decision Making Medical Decision Making: uncontrolled htn acute renal insuff creat 2.4 from 2.0 poor med compliance bipolar/Schizo/Depression w ? med compliance. Disposition Doctor Will See Patient In The: Hospital Counseled Patient/Family Regarding: Studies Performed, Diagnosis - Disposition Disposition: HOSPITALIZED Disposition Time: 16:51 Condition: GOOD - Clinical Impression Clinical Impression: Schizophrenia, Acute renal insufficiency - Scribe Statement The provider has reviewed the documentation as recorded by the Scribe Pepe Rebollar All medical record entries made by the Scribe were at my direction and personally dictated by me. I have reviewed the chart and agree that the record accurately reflects my personal performance of the history, physical exam, medical decision making, and the department course for this patient. I have also personally directed, reviewed, and agree with the discharge instructions and disposition.
[2019-02-15 15:24] LABS: BASO % 0.2 % (0.0-2.0); EOS # 0.2 K/uL (0.0-0.7); EOS % 2.9 % (0.0-4.0); HEMOGLOBIN 11.5 g/dL (11.0-16.0); LYMPH # 1.9 K/uL (1.0-4.3); LYMPH % 32.4 % (20.0-40.0); MEAN CELL VOLUME 90.6 fL (81.0-99.0); MEAN CORPUSCULAR HEMOGLOBIN 29.6 pg (27.0-31.0); MEAN CORPUSCULAR HGB CONC 32.7 g/dL (33.0-37.0); MEAN PLATELET VOLUME 9.5 fL (7.2-11.7); MONO # 0.6 K/uL (0.0-0.8); MONO % 9.7 % (0.0-10.0); NEUT # 3.2 K/uL (1.8-7.0); NEUT % 54.8 % (50.0-75.0); RBC 3.88 Mil/uL (3.80-5.20); RED CELL DISTRIBUTION WIDTH 14.6 % (11.5-14.5); WHITE BLOOD COUNT 5.9 K/uL (4.8-10.8)
[2019-02-15 15:38] LABS: ALB/GLOB RATIO 1.4 (1.0-2.1); ALBUMIN 3.9 g/dL (3.5-5.0); ALT/SGPT 19 U/L (9-52); AST/SGOT 19 U/L (14-36); BLOOD UREA NITROGEN 37 mg/dL (7-17); CALCIUM 8.6 mg/dl (8.6-10.4); GFR NON-AFRICAN AMERICAN 21
[2019-02-15 15:48] LABS: B-TYPE NATRIURETIC PEPTIDE 9650 pg/mL (0-900)
--- NOTE | 2019-02-15 15:53 | RAD ---
HISTORY: SOB COMPARISON: Chest x-ray performed 08/31/18 TECHNIQUE: Chest PA and lateral, 2 views FINDINGS: LUNGS: No focal consolidation. Please note that chest x-ray has limited sensitivity for the detection of pulmonary masses. PLEURA: No significant pleural effusion identified. No definite pneumothorax . CARDIOVASCULAR: Mild cardiomegaly. Ectatic aorta with atherosclerotic calcifications. OSSEOUS STRUCTURES: Degenerative changes. VISUALIZED UPPER ABDOMEN: Unremarkable. OTHER FINDINGS: None. IMPRESSION: Mild cardiomegaly.
[2019-02-15 16:19] LABS: SQUAMOUS EPITHIAL 3 /hpf (0-5); URINE BACTERIA RARE (<OCC); URINE BILIRUBIN NEGATIVE (NEGATIVE); URINE BLOOD NEGATIVE (NEGATIVE); URINE CLARITY Clear (Clear); URINE COLOR Yellow (YELLOW); URINE GLUCOSE (UA) NORMAL (Normal); URINE LEUKOCYTE ESTERASE NEG Leu/uL (Negative); URINE PROTEIN NEGATIVE (NEGATIVE); URINE UROBILINOGEN NORMAL mg/dL (0.2-1.0)
[2019-02-15 16:42] LABS: BARBITURATES, UR NEGATIVE (NEGATIVE); BENZODIAZEPINES, UR NEGATIVE (NEGATIVE); OPIATES, UR NEGATIVE (NEGATIVE); PHENCYCLIDINE, UR NEGATIVE (NEGATIVE)
--- NOTE | 2019-02-16 16:17 | CP.PCM.HP ---
Past Patient History - Infectious Disease Hx of Infectious Diseases: None - Past Medical History & Family History Past Medical History?: Yes - Past Social History Smoking Status: Light Smoker < 10 Cigarettes Daily - CARDIAC Hx Hypertension: Yes (Non-compliant with meds) - PULMONARY Hx Respiratory Disorders: No - NEUROLOGICAL Hx Neurological Disorder: No - HEENT Hx HEENT Problems: No - RENAL Hx Chronic Kidney Disease: No - ENDOCRINE/METABOLIC Hx Endocrine Disorders: Yes Hx Diabetes Mellitus Type 2: Yes - HEMATOLOGICAL/ONCOLOGICAL Hx Blood Disorders: No - INTEGUMENTARY Hx Dermatological Problems: No - MUSCULOSKELETAL/RHEUMATOLOGICAL Hx Musculoskeletal Disorders: Yes Hx Back Pain: Yes Hx Falls: No - GASTROINTESTINAL Hx Gastrointestinal Disorders: No - GENITOURINARY/GYNECOLOGICAL Hx Genitourinary Disorders: No - PSYCHIATRIC Hx Bipolar Disorder: Yes Hx Depression: Yes Hx Paranoia: Yes Hx Schizophrenia: Yes Hx Substance Use: Yes (denies) - SURGICAL HISTORY Hx Surgeries: Yes Hx Section: Yes - ANESTHESIA Hx Anesthesia: Yes Hx Anesthesia Reactions: No Hx Malignant Hyperthermia: No Meds Allergies/Adverse Reactions: Allergies Allergy/AdvReac Type Severity Reaction Status Date / Time No Known Allergies Allergy Verified 02/15/19 14:21 Physical Exam - Constitutional Appears: Well - Head Exam Head Exam: ATRAUMATIC, NORMAL INSPECTION, NORMOCEPHALIC - Eye Exam Eye Exam: EOMI, Normal appearance, PERRL Pupil Exam: NORMAL ACCOMODATION, PERRL - ENT Exam ENT Exam: Mucous Membranes Moist, Normal Exam - Neck Exam Neck exam: Positive for: Normal Inspection - Respiratory Exam Respiratory Exam: Decreased Breath Sounds - Cardiovascular Exam Cardiovascular Exam: REGULAR RHYTHM, +S1, +S2 - GI/Abdominal Exam GI & Abdominal Exam: Diminished Bowel Sounds, Soft - Rectal Exam Rectal Exam: Deferred - Neurological Exam Neurological exam: Oriented x3 Results - Vital Signs Recent Vital Signs: Last Vital Signs Temp 98.0 F 02/16/19 07:00 Pulse 63 02/16/19 15:53 Resp 20 02/16/19 07:00 BP 159/96 H 02/16/19 11:37 Pulse Ox 96 02/16/19 07:00 - Labs Result Diagrams: 02/15/19 15:19 02/15/19 15:19 Labs: Laboratory Results - last 24 hr 02/15/19 02/15/19 02/16/19 16:10 16:10 15:23 Urine Color Yellow Urine Clarity Clear Urine pH 6.0 Ur Specific [place] 1.014 Urine Protein Negative Urine Glucose (UA) Normal Urine Ketones Negative Urine Blood Negative Urine Nitrate Negative Urine Bilirubin Negative Urine Urobilinogen Normal Ur Leukocyte Esterase Neg Urine WBC (Auto) 2 Urine RBC (Auto) 1 Ur Squamous Epith Cells 3 Urine Bacteria Rare Ur Random Sodium 28 Urine Opiates Screen Negative Urine Methadone Screen Negative Ur Barbiturates Screen Negative Ur Phencyclidine Scrn Negative Ur Amphetamines Screen Negative U Benzodiazepines Scrn Negative U Oth Cocaine Metabols Positive H U Cannabinoids Screen Negative Assessment & Plan - Assessment and Plan (Free Text) Plan: 37 and 2.4 BUN and creatinine Blood pressure came down nicely to 159/96 Continue hydralazine Clonidine Imdur Amlodipine Renal sonogram Potassium 4.0 No protein in the urine Positive for the cocaine in urine patient counselled about not using the cocaine patient understands the consequences of using the cocaine and the side effects Will repeat the urine sodium tomorrow morning Medications reviewed Vitals reviewed Labs reviewed Follow up with laundry room attendant consultation if needed Workup for kidney as an outpatient
--- NOTE | 2019-02-17 10:33 | CARD ---
APPROVED REPORT Date of service: 02/15/2019 EKG Measurement Heart [id number] <Conclusion> Normal sinus rhythm Possible Left atrial enlargement Left ventricular hypertrophy with repolarization abnormality Abnormal ECG
[2019-02-17 14:51] LABS: CALCIUM 8.7 mg/dl (8.6-10.4)
--- NOTE | 2019-02-17 21:02 | CP.PCM.PN ---
Subjective - Date & Time of Evaluation Date of Evaluation: 02/17/19 - Subjective Subjective: patient examined today no nausea, no vomiting, no dizziness, no diarrhea, no fever denies shortness of breath Objective - Vital Signs/Intake and Output Vital Signs (last 24 hours): Temp Pulse Resp BP Pulse Ox 97.9 F 72 18 130/81 96 02/17/19 15:54 02/17/19 16:51 02/17/19 15:54 02/17/19 15:54 02/17/19 15:54 - Medications Medications: Current Medications Amlodipine Besylate (Norvasc) 10 mg PO DAILY [facility] Last Admin: 02/17/19 09:13 Dose: 10 mg Clonidine HCl (Catapres) 0.2 mg PO Q8 [facility] Last Admin: 02/17/19 13:29 Dose: 0.2 mg Heparin Sodium (Porcine) (Heparin) 5,000 units SC Q12 [facility] Last Admin: 02/17/19 09:13 Dose: 5,000 units Hydralazine HCl (Apresoline) 50 mg PO Q8H [facility] Last Admin: 02/17/19 17:32 Dose: 50 mg Ibuprofen (Motrin Tab) 400 mg PO Q8 PRN PRN Reason: Headache Last Admin: 02/17/19 06:05 Dose: 400 mg Isosorbide Mononitrate (Imdur) 60 mg PO DAILY [facility] Last Admin: 02/17/19 09:13 Dose: 60 mg - Labs Labs: 02/15/19 15:19 02/17/19 14:27 - Constitutional Appears: Well - Head Exam Head Exam: ATRAUMATIC, NORMAL INSPECTION, NORMOCEPHALIC - Eye Exam Eye Exam: EOMI, Normal appearance, PERRL Pupil Exam: NORMAL ACCOMODATION, PERRL - ENT Exam ENT Exam: Mucous Membranes Moist, Normal Exam - Neck Exam Neck Exam: Full ROM, Normal Inspection. absent: Lymphadenopathy - Respiratory Exam Respiratory Exam: Decreased Breath Sounds - Cardiovascular Exam Cardiovascular Exam: REGULAR RHYTHM, +S1, +S2 - GI/Abdominal Exam GI & Abdominal Exam: Soft, Diminished Bowel Sounds - Rectal Exam Rectal Exam: Deferred - Neurological Exam Neurological Exam: Oriented x3 Assessment and Plan - Assessment and Plan (Free Text) Plan: modern of complexity plan discussed with patient and family medications reviewed apresoline catapress heparin imdur motrin tab norvasc vitas reviewed labs reviewed
--- NOTE | 2019-02-18 20:10 | CP.PCM.PN ---
Subjective - Date & Time of Evaluation Date of Evaluation: 02/18/19 Time of Evaluation: 11:00 - Subjective Subjective: No nausea No vomiting patient has some mild abdominal discomfort No blood in stool Patient has no palpitation Objective - Vital Signs/Intake and Output Vital Signs (last 24 hours): Temp Pulse Resp BP Pulse Ox 98 F 67 18 139/87 97 02/18/19 15:39 02/18/19 16:00 02/18/19 15:39 02/18/19 15:39 02/18/19 15:39 - Medications Medications: Current Medications Amlodipine Besylate (Norvasc) 10 mg PO DAILY [facility] Last Admin: 02/18/19 09:51 Dose: 10 mg Clonidine HCl (Catapres) 0.2 mg PO Q8 [facility] Last Admin: 02/18/19 13:03 Dose: 0.2 mg Heparin Sodium (Porcine) (Heparin) 5,000 units SC Q12 [facility] Last Admin: 02/18/19 09:52 Dose: 5,000 units Hydralazine HCl (Apresoline) 50 mg PO Q8H [facility] Last Admin: 02/18/19 18:01 Dose: 50 mg Ibuprofen (Motrin Tab) 400 mg PO Q8 PRN PRN Reason: Headache Last Admin: 02/17/19 06:05 Dose: 400 mg Isosorbide Mononitrate (Imdur) 60 mg PO DAILY [facility] Last Admin: 02/18/19 09:51 Dose: 60 mg - Labs Labs: 02/15/19 15:19 02/17/19 14:27 - Constitutional Appears: Well - Head Exam Head Exam: ATRAUMATIC, NORMAL INSPECTION, NORMOCEPHALIC - Eye Exam Eye Exam: EOMI, Normal appearance, PERRL Pupil Exam: NORMAL ACCOMODATION, PERRL - ENT Exam ENT Exam: Mucous Membranes Moist, Normal Exam - Neck Exam Neck Exam: Full ROM, Normal Inspection. absent: Lymphadenopathy - Respiratory Exam Respiratory Exam: Decreased Breath Sounds - Cardiovascular Exam Cardiovascular Exam: REGULAR RHYTHM, +S1, +S2 - GI/Abdominal Exam GI & Abdominal Exam: Soft, Diminished Bowel Sounds - Rectal Exam Rectal Exam: Deferred - Neurological Exam Neurological Exam: Oriented x3 Assessment and Plan - Assessment and Plan (Free Text) Plan: apresoline catapress heparin imdur motrin tab norvasc medications reviewed labs reviewed vitals reviewed Plan of care discussed with the patient's Moderate complexity of care Patient's bedside Patient was sleeping woke up Plan renal consultations Blood pressure is stable 139/87 the readings are acceptable's Possible discharge of plan tomorrow Lab discussed with the patient's TSH tomorrow morning proBNP 9650 Glucose acceptable Patient counseled for positive cocaine in the urine
[2019-02-19 07:27] LABS: BASO # 0.1 K/uL (0.0-0.2); BASO % 1.5 % (0.0-2.0); EOS # 0.1 K/uL (0.0-0.7); EOS % 2.3 % (0.0-4.0); HEMOGLOBIN 11.1 g/dL (11.0-16.0); LYMPH # 2.3 K/uL (1.0-4.3); LYMPH % 35.5 % (20.0-40.0); MEAN CELL VOLUME 91.6 fL (81.0-99.0); MEAN CORPUSCULAR HEMOGLOBIN 30.3 pg (27.0-31.0); MEAN CORPUSCULAR HGB CONC 33.1 g/dL (33.0-37.0); MEAN PLATELET VOLUME 10.6 fL (7.2-11.7); MONO # 0.7 K/uL (0.0-0.8); MONO % 10.4 % (0.0-10.0); NEUT # 3.2 K/uL (1.8-7.0); NEUT % 50.3 % (50.0-75.0); NRBC % 0.1 % (0.0-2.0); RBC 3.66 Mil/uL (3.80-5.20); RED CELL DISTRIBUTION WIDTH 14.7 % (11.5-14.5); WHITE BLOOD COUNT 6.4 K/uL (4.8-10.8)
[2019-02-19 07:28] LABS: ALB/GLOB RATIO 1.3 (1.0-2.1); ALBUMIN 3.6 g/dL (3.5-5.0); CALCIUM 8.6 mg/dl (8.6-10.4)
--- NOTE | 2019-02-19 12:40 | CP.PCM.CON ---
History of Present Illness - History of Present Illness History of Present Illness: 53 year old female presents to the ED c/o elevated blood pressure and flushed/fullness in her face. Patient reports she is not currently taking her clonidine, hydrochlorothiazide and norvasc because she claims "forgets". Patient has multiple admission for uncontrolled HTN. Patient with PMHx schizophrenia, bipolar disorder Patient denies any hx of CAD, ND or CVA Reports non-compliance with HTN meds + urine tox for cocaine CKD stage 4 currently no acute distress, angina, CHF or volume overload Review of Systems - Review of Systems All systems: reviewed and no additional remarkable complaints except Past Patient History - Infectious Disease Hx of Infectious Diseases: None - Past Medical History & Family History Past Medical History?: Yes - Past Social History Smoking Status: Light Smoker < 10 Cigarettes Daily - CARDIAC Hx Hypertension: Yes (Non-compliant with meds) - PULMONARY Hx Respiratory Disorders: No - NEUROLOGICAL Hx Neurological Disorder: No - HEENT Hx HEENT Problems: No - RENAL Hx Chronic Kidney Disease: No - ENDOCRINE/METABOLIC Hx Endocrine Disorders: Yes Hx Diabetes Mellitus Type 2: Yes - HEMATOLOGICAL/ONCOLOGICAL Hx Blood Disorders: No - INTEGUMENTARY Hx Dermatological Problems: No - MUSCULOSKELETAL/RHEUMATOLOGICAL Hx Musculoskeletal Disorders: Yes Hx Back Pain: Yes Hx Falls: No - GASTROINTESTINAL Hx Gastrointestinal Disorders: No - GENITOURINARY/GYNECOLOGICAL Hx Genitourinary Disorders: No - PSYCHIATRIC Hx Bipolar Disorder: Yes Hx Depression: Yes Hx Paranoia: Yes Hx Schizophrenia: Yes Hx Substance Use: Yes (denies) - SURGICAL HISTORY Hx Surgeries: Yes Hx Section: Yes - ANESTHESIA Hx Anesthesia: Yes Hx Anesthesia Reactions: No Hx Malignant Hyperthermia: No Meds Allergies/Adverse Reactions: Allergies Allergy/AdvReac Type Severity Reaction Status Date / Time No Known Allergies Allergy Verified 02/15/19 14:21 - Medications Medications: Current Medications Amlodipine Besylate (Norvasc) 10 mg PO DAILY [facility] Last Admin: 02/19/19 09:06 Dose: 10 mg Clonidine HCl (Catapres) 0.2 mg PO Q8 [facility] Last Admin: 02/19/19 05:50 Dose: 0.2 mg Heparin Sodium (Porcine) (Heparin) 5,000 units SC Q12 [facility] Last Admin: 02/19/19 09:06 Dose: 5,000 units Hydralazine HCl (Apresoline) 50 mg PO Q8H [facility] Last Admin: 02/19/19 10:15 Dose: 50 mg Ibuprofen (Motrin Tab) 400 mg PO Q8 PRN PRN Reason: Headache Last Admin: 02/17/19 06:05 Dose: 400 mg Isosorbide Mononitrate (Imdur) 60 mg PO DAILY [facility] Last Admin: 02/19/19 09:06 Dose: 60 mg Physical Exam - Constitutional Appears: No Acute Distress - Head Exam Head Exam: ATRAUMATIC, NORMAL INSPECTION, NORMOCEPHALIC - Eye Exam Eye Exam: EOMI, Normal appearance, PERRL - ENT Exam ENT Exam: Mucous Membranes Moist, Normal Oropharynx - Neck Exam Neck exam: Positive for: Normal Inspection - Respiratory Exam Respiratory Exam: Clear to Auscultation Bilateral. absent: Rales, Rhonchi, Wheezes - Cardiovascular Exam Cardiovascular Exam: REGULAR RHYTHM, Systolic Murmur (LUSB, no radiation, SM, normal A2, inc with inspiration) - GI/Abdominal Exam GI & Abdominal Exam: Soft. absent: Tenderness - Extremities Exam Extremities exam: Positive for: normal inspection. Negative for: calf tenderness - Neurological Exam Neurological exam: Alert, Oriented x3 - Psychiatric Exam Psychiatric exam: Depressed, Normal Affect - Skin Skin Exam: Normal Color, Warm Results - Vital Signs Recent Vital Signs: Last Vital Signs Temp 98.3 F 02/19/19 07:00 Pulse 59 L 02/19/19 07:00 Resp 18 02/19/19 07:00 BP 127/73 02/19/19 10:18 Pulse Ox 98 02/19/19 07:00 - Labs Result Diagrams: 02/19/19 07:01 02/19/19 07:01 Labs: Laboratory Results - last 24 hr 02/19/19 02/19/19 02/19/19 07:01 07:01 07:01 WBC 6.4 RBC 3.66 L Hgb 11.1 Hct 33.6 L MCV 91.6 MCH 30.3 MCHC 33.1 RDW 14.7 H Plt Count 283 MPV 10.6 Neut % (Auto) 50.3 Lymph % (Auto) 35.5 [place] % (Auto) 10.4 H Eos % (Auto) 2.3 Baso % (Auto) 1.5 Neut # (Auto) 3.2 Lymph # (Auto) 2.3 [place] # (Auto) 0.7 Eos # (Auto) 0.1 Baso # (Auto) 0.1 Sodium 138 Potassium 3.9 Chloride 104 Carbon Dioxide 23 Anion Gap 15 BUN 32 H Creatinine 2.4 H Est GFR ( Amer) 26 Est GFR (Non-Af Amer) 21 Random Glucose 108 H D Hemoglobin A1c 6.1 Calcium 8.6 Phosphorus 4.5 Magnesium 1.9 Total Bilirubin 0.1 L AST 14 D ALT 13 Alkaline Phosphatase 57 Total Protein 6.5 Albumin 3.6 Globulin 2.9 Albumin/Globulin Ratio 1.3 TSH 3rd Generation 3.12 - EKG Data EKG Interpreted by: Myself - Imaging and Cardiology Chest x-ray Status: Image reviewed by me Assessment & Plan - Assessment and Plan (Free Text) Assessment: 53 y/o cocaine positive present swith flushing, uncontrolled HTN Non-compliance with HTN meds bipolar disorder - EKG: NSR, LVH with strain - CXR: no congestion clinically appears to have HTN CVD with diasatolic dysfunction chronic, with CKD Plan cont hydralazine and titrate cont norvasc 10 cont imdur echo ordered to eval murmur which may be flow murmur or TR counseling on drug abuse and compliance with meds low salt diet
--- NOTE | 2019-02-19 19:21 | CP.PCM.PN ---
Subjective - Date & Time of Evaluation Date of Evaluation: 02/19/19 - Subjective Subjective: patient examined today at bedside no nausea, no vomiting no dizziness, no fever patient denies shortness of breath Objective - Vital Signs/Intake and Output Vital Signs (last 24 hours): Temp Pulse Resp BP Pulse Ox 97.9 F 71 20 156/90 H 96 02/19/19 15:00 02/19/19 17:40 02/19/19 15:00 02/19/19 17:40 02/19/19 15:00 - Medications Medications: Current Medications Amlodipine Besylate (Norvasc) 10 mg PO DAILY [facility] Last Admin: 02/19/19 09:06 Dose: 10 mg Clonidine HCl (Catapres) 0.2 mg PO Q8 [facility] Last Admin: 02/19/19 13:33 Dose: 0.2 mg Heparin Sodium (Porcine) (Heparin) 5,000 units SC Q12 [facility] Last Admin: 02/19/19 09:06 Dose: 5,000 units Hydralazine HCl (Apresoline) 50 mg PO Q8H [facility] Last Admin: 02/19/19 17:38 Dose: 50 mg Ibuprofen (Motrin Tab) 400 mg PO Q8 PRN PRN Reason: Headache Last Admin: 02/19/19 17:42 Dose: 400 mg Isosorbide Mononitrate (Imdur) 60 mg PO DAILY [facility] Last Admin: 02/19/19 09:06 Dose: 60 mg - Labs Labs: 02/19/19 07:01 02/19/19 07:01 - Constitutional Appears: Well - Head Exam Head Exam: ATRAUMATIC, NORMAL INSPECTION, NORMOCEPHALIC - Eye Exam Eye Exam: EOMI, Normal appearance, PERRL Pupil Exam: NORMAL ACCOMODATION, PERRL - ENT Exam ENT Exam: Mucous Membranes Moist, Normal Exam - Neck Exam Neck Exam: Full ROM, Normal Inspection. absent: Lymphadenopathy - Respiratory Exam Respiratory Exam: Decreased Breath Sounds - Cardiovascular Exam Cardiovascular Exam: REGULAR RHYTHM, +S1, +S2 - GI/Abdominal Exam GI & Abdominal Exam: Soft, Diminished Bowel Sounds - Rectal Exam Rectal Exam: Deferred - Neurological Exam Neurological Exam: Oriented x3 Assessment and Plan - Assessment and Plan (Free Text) Plan: medications reviewed vitals reviewed labs reviewed plan discussed with patient moderate complexity of care
--- NOTE | 2019-02-20 10:30 | CP.PCM.PN ---
Subjective - Date & Time of Evaluation Date of Evaluation: 02/20/19 Objective - Vital Signs/Intake and Output Vital Signs (last 24 hours): Temp Pulse Resp BP Pulse Ox 97.8 F 57 L 20 160/89 H 100 02/20/19 07:46 02/20/19 07:46 02/20/19 07:46 02/20/19 07:46 02/20/19 07:46 - Medications Medications: Current Medications Acetaminophen (Tylenol 325mg Tab) 650 mg PO Q6 PRN PRN Reason: Pain, moderate (4-7) Amlodipine Besylate (Norvasc) 10 mg PO DAILY [facility] Last Admin: 02/20/19 10:23 Dose: 10 mg Clonidine HCl (Catapres) 0.2 mg PO Q8 [facility] Last Admin: 02/20/19 05:37 Dose: 0.2 mg Heparin Sodium (Porcine) (Heparin) 5,000 units SC Q12 [facility] Last Admin: 02/19/19 21:37 Dose: 5,000 units Hydralazine HCl (Apresoline) 50 mg PO Q8H [facility] Last Admin: 02/20/19 10:23 Dose: 50 mg Isosorbide Mononitrate (Imdur) 60 mg PO DAILY [facility] Last Admin: 02/20/19 10:23 Dose: 60 mg - Labs Labs: 02/19/19 07:01 02/19/19 07:01 - Constitutional Appears: Well - Head Exam Head Exam: ATRAUMATIC, NORMAL INSPECTION, NORMOCEPHALIC - Eye Exam Eye Exam: EOMI, Normal appearance, PERRL Pupil Exam: NORMAL ACCOMODATION, PERRL - ENT Exam ENT Exam: Mucous Membranes Moist, Normal Exam - Neck Exam Neck Exam: Full ROM, Normal Inspection. absent: Lymphadenopathy - Respiratory Exam Respiratory Exam: Decreased Breath Sounds - Cardiovascular Exam Cardiovascular Exam: REGULAR RHYTHM, +S1, +S2 - GI/Abdominal Exam GI & Abdominal Exam: Soft, Diminished Bowel Sounds - Rectal Exam Rectal Exam: Deferred - Neurological Exam Neurological Exam: Oriented x3
--- NOTE | 2019-02-20 13:01 | CP.PCM.PN ---
Subjective - Date & Time of Evaluation Date of Evaluation: 02/20/19 Time of Evaluation: 12:55 - Subjective Subjective: Events reviewed Objective - Vital Signs/Intake and Output Vital Signs (last 24 hours): Temp Pulse Resp BP Pulse Ox 97.8 F 57 L 20 160/89 H 100 02/20/19 07:46 02/20/19 07:46 02/20/19 07:46 02/20/19 07:46 02/20/19 07:46 - Medications Medications: Current Medications Acetaminophen (Tylenol 325mg Tab) 650 mg PO Q6 PRN PRN Reason: Pain, moderate (4-7) Amlodipine Besylate (Norvasc) 10 mg PO DAILY [facility] Last Admin: 02/20/19 10:23 Dose: 10 mg Clonidine HCl (Catapres) 0.2 mg PO Q8 [facility] Last Admin: 02/20/19 05:37 Dose: 0.2 mg Heparin Sodium (Porcine) (Heparin) 5,000 units SC Q12 [facility] Last Admin: 02/20/19 11:36 Dose: 5,000 units Hydralazine HCl (Apresoline) 50 mg PO Q8H [facility] Last Admin: 02/20/19 10:23 Dose: 50 mg Isosorbide Mononitrate (Imdur) 60 mg PO DAILY [facility] Last Admin: 02/20/19 10:23 Dose: 60 mg - Labs Labs: 02/19/19 07:01 02/19/19 07:01 Assessment and Plan - Assessment and Plan (Free Text) Assessment: 2D echo images viewed by me: Normal LV systolic function, concentric LVH, inconclusive diastolic function. No regional wall motion abnormalities. - EKG Data EKG Interpreted by: Myself - Imaging and Cardiology Chest x-ray Status: Image reviewed by me Assessment & Plan - Assessment and Plan (Free Text) Assessment: 53 y/o cocaine abuse social work to assist in treatment for substance abuse Hypertensive heart disease encourage compliance norvasc, clonidine, imdur and hydralazine Bipolar disorder chronic and needs better control - EKG: NSR, LVH with strain - CXR: no congestion Plan cont hydralazine titration cont norvasc 10 cont imdur
--- NOTE | 2019-02-20 14:21 | CARD ---
APPROVED REPORT Date of service: 02/20/2019 EXAM: Two-dimensional and M-mode echocardiogram with Doppler and color Doppler. Other Information Quality : GoodRhythm : INDICATION Hypertension/HCVD Murmur RISK FACTORS Hypertension Diabetes 2D DIMENSIONS IVSd1.8 (0.7-1.1cm)LVDd4.4 (3.9-5.9cm) PWd1.7 (0.7-1.1cm)LA Luqajd20 (18-58mL) LVDs2.6 (2.5-4.0cm)FS (%) 39.9 % LVEF (%)70.7 (>50%)LVEF (Luther's)71.11 % IVC0.00 cm M-Mode DIMENSIONS RVDd2.22 (2.1-3.2cm)Left Atrium (MM)3.06 (2.5-4.0cm) IVSd2.10 (0.7-1.1cm)Aortic Root3.52 (2.2-3.7cm) LVDd4.10 (4.0-5.6cm)Aortic Cusp Exc.2.13 (1.5-2.0cm) PWd2.22 (0.7-1.1cm)FS (%) 41 % LVDs2.43 (2.0-3.8cm)TAPSE19.47 cm LVEF (%)72 (>50%) Mitral Valve MV E Auonyzcp653.4cm/sMV A Qlbzetcp72.9cm/sE/A ratio1.4 GNBO258.98 cm/s TDI E/Lateral E'0.0E/Medial E'0.0 Tricuspid Valve TR Peak [id number]/sTR Peak Gr.[id number] LEFT VENTRICLE The left ventricle is normal size. There is moderate concentric left ventricular hypertrophy. The left ventricular function is normal. The left ventricular ejection fraction is within the normal range. No regional wall motion abnormalities noted. Not performed No left ventricle thrombus noted on this study. There is no ventricular septal defect visualized. There is no left ventricular aneurysm. There is no mass noted in the left ventricle. RIGHT VENTRICLE The right ventricle is normal size. There is normal right ventricular wall thickness. The right ventricular systolic function is normal. ATRIA The left atrium size is normal. The right atrium size is normal. The interatrial septum is intact with no evidence for an atrial septal defect. AORTIC VALVE The aortic valve is normal in structure and function. No aortic regurgitation is present. There is no aortic valvular stenosis. There is no aortic valvular vegetation. MITRAL VALVE The mitral valve is normal in structure and function. There is no evidence of mitral valve prolapse. There is no mitral valve stenosis. Mitral regurgitation is mild., early systolic EOA is 0.1 cm2 ( mild ) TRICUSPID VALVE The tricuspid valve is normal in structure and function. There is mild tricuspid regurgitation. Right ventricular systolic pressure is estimated at 30-40 mmHg. There is mild pulmonary hypertension. There is no tricuspid valve prolapse or vegetation. There is no tricuspid valve stenosis. PULMONIC VALVE The pulmonary valve is normal in structure and function. There is no pulmonic valvular regurgitation. There is no pulmonic valvular stenosis. GREAT VESSELS The aortic root is normal in size. The ascending aorta is normal in size. The pulmonary artery is normal. The IVC is normal in size and collapses >50% with inspiration. PERICARDIAL EFFUSION The pericardium appears normal. There is no pleural effusion. <Conclusion> There is moderate concentric left ventricular hypertrophy. The left ventricular function is normal. The left ventricular ejection fraction is within the normal range. No regional wall motion abnormalities noted. Mitral regurgitation is mild., early systolic EOA is 0.1 cm2 ( mild )
--- NOTE | 2019-02-20 16:35 | CP.PCM.PN ---
Subjective - Date & Time of Evaluation Date of Evaluation: 02/20/19 Time of Evaluation: 16:31 - Subjective Subjective: Pt alert and oriented x3. Pt seen today, states feels better, comfortable in bed, she denies any chest pain, shortness of breath, dizziness. VSS and labs reviewed. Objective - Vital Signs/Intake and Output Vital Signs (last 24 hours): Temp Pulse Resp BP Pulse Ox 97.8 F 57 L 20 160/89 H 100 02/20/19 07:46 02/20/19 07:46 02/20/19 07:46 02/20/19 07:46 02/20/19 07:46 - Medications Medications: Current Medications Acetaminophen (Tylenol 325mg Tab) 650 mg PO Q6 PRN PRN Reason: Pain, moderate (4-7) Amlodipine Besylate (Norvasc) 10 mg PO DAILY [facility] Last Admin: 02/20/19 10:23 Dose: 10 mg Clonidine HCl (Catapres) 0.2 mg PO Q8 [facility] Last Admin: 02/20/19 13:46 Dose: 0.2 mg Heparin Sodium (Porcine) (Heparin) 5,000 units SC Q12 [facility] Last Admin: 02/20/19 11:36 Dose: 5,000 units Hydralazine HCl (Apresoline) 50 mg PO Q8H [facility] Last Admin: 02/20/19 10:23 Dose: 50 mg Isosorbide Mononitrate (Imdur) 60 mg PO DAILY [facility] Last Admin: 02/20/19 10:23 Dose: 60 mg - Labs Labs: 02/19/19 07:01 02/19/19 07:01 Assessment and Plan - Assessment and Plan (Free Text) Assessment: 53 year old female presents to the ED c/o elevated blood pressure. Patient was uncompliant in taking her HTN medications clonidine, hydrochlorothiazide and n orvasc because she claims "forgets". Patient has multiple admission for uncontrolled HTN. Patient with PMHx schizophrenia, bipolar disorder. Pt + urine tox for cocaine. Pt seen and examined. Activity as tolerated. VSS. Pt alert and oriented with no signs and symptoms of chest pain, palpitations, sob, or dizziness. EKG done, Echo done no significant findings. Discharge discussed with Dr. Jeanna Jo and family. Pt was instructed to resume all home medications and start taking hydralazine as directed. RX given.
[2019-02-20 16:40] VITALS: BP 148/82; RESP 18; TEMP 98.5
[2019-02-20 16:50] VITALS: PULSE 62; O2SAT 100
== END 2019-02-20 19:09 | disposition home or self-care (01) ==
LOC: C.ER 14:09 → C.6T 17:53
PROVIDERS: ADMIT Internal Medicine Nephrology; ATTEND Internal Medicine Nephrology
DX: I13.10 Hypertensive heart and chronic kidney disease without heart failure, with stage 1 through stage 4 chronic kidney disease, or unspecified chronic kidney disease (principal); E11.22 Type 2 diabetes mellitus with diabetic chronic kidney disease; F14.10 Cocaine abuse, uncomplicated; N18.4 Chronic kidney disease, stage 4 (severe); F20.9 Schizophrenia, unspecified; F31.9 Bipolar disorder, unspecified; F17.210 Nicotine dependence, cigarettes, uncomplicated; Z91.14 Patient's other noncompliance with medication regimen; Z91.19 Patient's noncompliance with other medical treatment and regimen; Z98.891 History of uterine scar from previous surgery; Z79.84 Long term (current) use of oral hypoglycemic drugs
CPT/HCPCS: 36415; 71046; 80048; 80053; 80324; 80345; 80346; 80349; 80353; 80358; 80361; 81001; 82948; 83036; 83735; 83880; 83992; 84100; 84300; 84443; 84484; 85025; 93005; 93306; 99285; G0378; J1644